=== PATIENT | female | born 1995 | race Caucasian/White ===

== ENCOUNTER 2019-05-10 18:07 | Emergency (ER) | payer OTHER, SELFPAY ==
[2019-05-10 18:11] VITALS: BP 124/72; PULSE 92; RESP 20; TEMP 36.6; O2SAT 100
--- NOTE | 2019-05-10 18:33 | ED.GENADULT ---
HPI - General Adult General Chief complaint: Upper Respiratory Infection Stated complaint: DRAINAGE/EARACHE/SORE THROAT Time Seen by Provider: 05/10/19 18:33 Source: patient Mode of arrival: ambulatory Limitations: no limitations History of Present Illness HPI narrative: 23-year-old female patient presents to the [facility] with complaints of sinus congestion symptoms for the past week. Patient states she was seen here about a month ago was treated for a sinus infection. Patient states that she did complete the antibiotics and was feeling good for about 2 weeks. Patient states some of her symptoms are starting to come back including nasal congestion, sore throat, a cough especially in the morning when she wakes up. Denies any fevers, ear pain, chest pain, shortness of breath. Patient states she has been trying to take [id number] Sudafed for her symptoms. Patient states that she did get a flu shot this year. Patient denies any smoking. Related Data Home Medications Medication Instructions Recorded Confirmed fluoxetine 40 mg PO DAILY 02/25/19 05/10/19 methotrexate sodium 2.5 mg PO WEEKLY 02/25/19 05/10/19 pseudoephedrine HCl [Sudafed] 30 mg PO Q4-6H PRN 04/04/19 05/10/19 Allergies Allergy/AdvReac Type Severity Reaction Status Date / Time hydroxychloroquine Allergy Severe hives Verified 05/10/19 18:21 [From Plaquenil] benzoyl peroxide Allergy Unknown eyes get Verified 05/10/19 18:21 puffy and itchy face Review of Systems Review of Systems: Narrative: CONSTITUTIONAL: Denies fever, chills, or sweats. EYES: Denies visual changes, redness, or discharge. ENT: Positive rhinorrhea, congestion, sore throat, denies otalgia. CARDIOVASCULAR: Denies chest pain, palpitations, or edema. RESPIRATORY: Positive cough, denies dyspnea. GASTROINTESTINAL: Denies abdominal pain, nausea, vomiting, or diarrhea. GENITOURINARY: Denies dysuria or hematuria. SKIN: Denies rash or itching. MUSCULOSKELETAL: Denies back pain, joint pain, or myalgia. NEUROLOGIC: Denies headache, numbness, or weakness. PSYCHIATRIC: Denies anxiety or depression. [facility] Past Medical History Medical History Anemia Arthritis Lupus Surgical History Surgical History History of tonsillectomy and adenoidectomy Family History Family History Grandparent Family history of thyroid disease Family history of osteoporosis Family history of psoriasis Family history of rheumatoid arthritis Family history of kidney disease Family history of type 2 diabetes mellitus Father Family history of osteoarthritis Family history of type 2 diabetes mellitus Diabetes mellitus Depression Mother Family history of osteoarthritis Depression Family history of arthritis Social History Social History Smoking status: Never smoker Second hand tobacco smoke exposure: No Alcohol intake: never Comments At the time of my signature I agree with nursing past medical history, surgical, social, and family history. There is no relevant family history pertinent to the presenting complaint. Exam Narrative: Exam Narrative: GENERAL: Well-appearing, well-nourished, and in no acute distress. HEAD: Normocephalic, atraumatic. No tenderness noted to frontal maxillary sinuses on palpation. EYES: PERRLA and EOMI. ENT: Nares with erythema and edema noted bilaterally, no rhinorrhea or epistaxis. Mucous membranes moist. Posterior pharynx with some postnasal drip. Bilateral TMs are clear no erythema or foreign bodies in the canal. NECK: Supple. No lymphadenopathy CHEST: Clear to auscultation. No respiratory distress. HEART: Regular rate and rhythm. No murmur heard. Normal peripheral pulses. ABDOMEN: Soft, nontender, nondistended, normal active bowel sounds.
== END 2019-05-10 18:44 | disposition home or self-care (01) ==
PROVIDERS: Emergency Provider Nurse Practitioner Family; PCP Family Medicine
DX: J06.9 Acute upper respiratory infection, unspecified (principal); J00 Acute nasopharyngitis [common cold]; J01.90 Acute sinusitis, unspecified; R05 Cough; M32.9 Systemic lupus erythematosus, unspecified; M19.90 Unspecified osteoarthritis, unspecified site; E28.2 Polycystic ovarian syndrome
CPT/HCPCS: 87081; 87880; 99213; G0463

== ENCOUNTER 2019-05-25 16:55 | Emergency (ER) | payer OTHER, SELFPAY ==
[2019-05-25 16:57] VITALS: BP 124/85; PULSE 138; RESP 20; TEMP 38.9; O2SAT 98
--- NOTE | 2019-05-25 17:19 | ED.GENADULT ---
HPI - General Adult General Chief complaint: Upper Respiratory Infection Stated complaint: Cough, Runny Nose, Headaches, Congestion Time Seen by Provider: 05/25/19 17:19 Source: patient Mode of arrival: ambulatory Limitations: no limitations History of Present Illness HPI narrative: 23-year-old female patient presents to the [facility] with complaints of flulike symptoms that started yesterday. Patient states she has had severe body aches, fevers, cough, nasal congestion and runny nose. Patient states that she did get a flu shot this year. 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 Patient states that her symptoms started yesterday. Patient states she has been taking Tylenol and ibuprofen for symptoms so far. Denies any chest pain or shortness of breath. Denies any or breast-feeding. Related Data Home Medications Medication Instructions Recorded Confirmed fluoxetine 40 mg PO DAILY 02/25/19 05/10/19 Allergies Allergy/AdvReac Type Severity Reaction Status Date / Time hydroxychloroquine Allergy Severe hives Verified 05/10/19 18:21 [From Plaquenil] benzoyl peroxide Allergy Unknown eyes get Verified 05/10/19 18:21 puffy and itchy face Review of Systems Review of Systems: Narrative: CONSTITUTIONAL: Positive fever, body aches, chills, and sweats. EYES: Denies visual changes, redness, or discharge. ENT: Positive rhinorrhea, congestion, denies sore throat, or otalgia. CARDIOVASCULAR: Denies chest pain, palpitations, or edema. RESPIRATORY: Positive cough, denies dyspnea. GASTROINTESTINAL: Denies abdominal pain, nausea, vomiting, or diarrhea. GENITOURINARY: Denies dysuria or hematuria. SKIN: Denies rash or itching. MUSCULOSKELETAL: Denies back pain, joint pain, or myalgia. NEUROLOGIC: Denies headache, numbness, or weakness. PSYCHIATRIC: Denies anxiety or depression. PMFSH Social History Social History Smoking status: Never smoker Second hand tobacco smoke exposure: No Alcohol intake: never Comments At the time of my signature I agree with nursing past medical history, surgical, social, and family history. There is no relevant family history pertinent to the presenting complaint. Exam Narrative: Exam Narrative: GENERAL: ill-appearing, well-nourished, and in no acute distress. HEAD: Normocephalic, atraumatic. Tenderness noted to frontal maxillary sinuses on palpation. EYES: PERRLA and EOMI. ENT: Nares clear, no rhinorrhea or epistaxis. Mucous membranes moist. Posterior pharynx with no erythema, tonsil enlargement, exudates or lesions present. Bilateral TMs are clear no erythema or foreign bodies in the canal. NECK: Supple. No lymphadenopathy CHEST: Clear to auscultation. No respiratory distress. HEART: Regular rate and rhythm. No murmur heard. Normal peripheral pulses. ABDOMEN: Soft, nontender, nondistended, normal active bowel sounds. EXTREMITIES: Normal range of motion. No edema. SKIN: Warm, dry, no rash. NEURO: No focal deficits. Alert and oriented x3. Course Vital Signs Vital signs: Vital Signs Temperature 38.9 C H 05/25/19 16:57 Pulse Rate 138 H 05/25/19 16:57 Respiratory Rate 20 05/25/19 16:57 Blood Pressure 124/85 05/25/19 16:57 Pulse Oximetry 98 05/25/19 16:57 Temperature 38.9 C H 05/25/19 16:57 Pulse Rate 138 H 05/25/19 16:57 Respiratory Rate 20 05/25/19 16:57 Blood Pressure 124/85 05/25/19 16:57 Pulse Oximetry 98 05/25/19 16:57 Vital signs reviewed The patient has been informed that they may have pre-hypertension or Hypertension based on a BP reading in the department. I recommend that the patient call the primary care provider listed on their discharge instructions or a physician of their choice this week to arrange follow up for further evaluation of possible pre-hypertension or Hypertension Medical Decision Making Differential Diagn
== END 2019-05-25 17:32 | disposition home or self-care (01) ==
PROVIDERS: Emergency Provider Nurse Practitioner Family; PCP Family Medicine
DX: J10.1 Influenza due to other identified influenza virus with other respiratory manifestations (principal); M32.9 Systemic lupus erythematosus, unspecified; E28.2 Polycystic ovarian syndrome
CPT/HCPCS: 87804; 99213; G0463

== ENCOUNTER 2020-02-18 11:11 | Outpatient (CLI) | payer OTHER, SELFPAY ==
--- NOTE | ~2020-02-18 | MR_ITS ---
EXAMINATION: MR cervical spine wo con DATE: 02/18/2020 12:00 INDICATION: Chronic neck and bilateral shoulder pain TECHNIQUE: Magnetic resonance imaging (MRI) of the cervical spine was performed without intravenous c ontrast. Sequences included sagittal T2-weighted FSE, sagittal T2-weighted FS FSE, sagittal T1-weight ed FSE, axial MERGE and axial T2-weighted FSE. COMPARISON: None FINDINGS: Bone alignment is normal. Vertebral body heights are normal. Bone marrow signal intensity is normal . Annular fissures at C4-C5, C5-C6 and C6-C7 with mild disc height loss at C4-C5 and C5-C6. Cord sign al intensity is normal. Mild prominence of the adenoids. Cervical soft tissues are otherwise unremark able. The following disc levels are specifically discussed: C2-C3: The disc does not extend beyond the endplate margin. There is no uncovertebral joint osteoarth ritis. There is mild left and minimal right facet joint osteoarthritis. There is no neural foraminal stenosis. There is no central canal stenosis. C3-C4: Disc is mildly bulging. There is mild right and minimal left uncovertebral joint osteoarthriti s. There is minimal bilateral facet joint osteoarthritis. There is mild right neural foraminal stenos is. There is mild central canal stenosis. C4-C5: Disc is bulging with annular fissure and small disc extrusion with disc material extending a f ew millimeters caudal to the level of the superior endplate of C5. There is no uncovertebral joint os teoarthritis. There is mild left and minimal right facet joint osteoarthritis. There is minimal left neural foraminal stenosis. There is mild central canal stenosis with slight indentation of the centra l ventral surface of the cord.. C5-C6: Disc is bulging with superimposed annular fissure and central disc extrusion with disc materia l extending a few millimeter caudal to the level of the superior endplate of C6. There is no uncovert ebral joint osteoarthritis. There is mild right and minimal left facet joint osteoarthritis. There is minimal bilateral neural foraminal stenosis. There is mild central canal stenosis with indentation o f the ventral surface of the cord. C6-C7: Disc is mildly bulging with small central disc extrusion with disc material extending a couple millimeters caudal to the level of the superior endplate of C7. There is no uncovertebral joint oste oarthritis. There is minimal bilateral facet joint osteoarthritis. There is no neural foraminal steno sis. There is mild central canal stenosis. C7-T1: The disc does not extend beyond the endplate margin. There is no uncovertebral joint osteoarth ritis. There is mild left facet joint osteoarthritis. There is no neural foraminal stenosis. There is no central canal stenosis. IMPRESSION: 1. Mild cervical spondylosis most notable for annular fissures and small central disc extrusions at C 4-C5 through C6-C7. Reviewed, dictated and finalized at location . KEEPING SUPERVISOR IMPRESSION: 1. Mild cervical spondylosis most notable for annular fissures and small centra l disc extrusions at C4-C5 through C6-C7.
--- NOTE | ~2020-02-18 | MR_ITS ---
EXAMINATION: MRI SACRUM W/O CONTRAST DATE: 02/18/2020 12:30 INDICATION: TECHNIQUE: Magnetic resonance imaging (MRI) of the sacrum and coccyx was performed as suggested on th e left linear without intravenous contrast. Sequences included sagittal PD-weighted FSE; oblique axi al T1-weighted FSE and T2-weighted FS FSE; oblique coronal T2-weighted FSE, T1-weighted FSE and T2-we ighted FS FSE.] COMPARISON: None. FINDINGS: Bone alignment is normal. Normal marrow signal throughout with no reactive edema, fracture or patholo gic marrow replacing process. Bilateral sacral iliac joint spaces appear normal with expected small a mount of fluid signal along the joint line. No evident fluid or synovitis at the recess of the joint space, erosions or abnormal subchondral edema or sclerosis to suggest inflammatory sacroiliitis. The visualized lower lumbar discs appear normal. Mild facet osteoarthritis on the left at L5-S1. Central canal and neural foramina at L4-L5 and L5-S1 are normal. Bilateral hip joints also appear normal with no joint effusion. Circular low signal intensity likely contraceptive ring in the vaginal vault. The visualized organs in the visualized pelvis are otherwise unremarkable. Trace amount of likely physio logic free fluid in the right side of the cul-de-sac.No pathologically enlarged lymphadenopathy in th e visualized pelvis and inferior abdomen. IMPRESSION: 1. Normal bilateral sacroiliac joints. No findings to suggest inflammatory sacroiliitis. Reviewed, dictated and finalized at [facility]. NILE COURT JUDGE IMPRESSION: 1. Normal bilateral sacroiliac joints. No findings to suggest inflammatory sacr oiliitis.
== END 2020-02-18 11:12 ==
PROVIDERS: Visit Provider Nurse Practitioner Family
DX: M32.9 Systemic lupus erythematosus, unspecified (principal); M47.892 Other spondylosis, cervical region; M50.20 Other cervical disc displacement, unspecified cervical region
CPT/HCPCS: 72141; 72197

== ENCOUNTER 2020-03-02 12:19 | Emergency (ER) | payer OTHER, SELFPAY ==
--- NOTE | ~2020-03-02 | CT_ITS ---
EXAMINATION: CT brain wo con DATE: 03/02/2020 14:39 INDICATION: Headache. TECHNIQUE: Computed tomography (CT) of the head was performed without intravenous contrast. The mA wa s adjusted according to patient size. Iterative reconstruction technique was employed. The dose-lengt h product was 605.33 mGy-cm. COMPARISON: None FINDINGS: There is no intracranial hemorrhage, acute infarction, or abnormal intracranial mass lesion . The ventricles are normal in size. There is a mucus retention cyst in left maxillary sinus. The orb its are normal. The mastoid air cells are normal. IMPRESSION: 1. Normal brain. Reviewed, dictated and finalized at location A. OYMENT COACH IMPRESSION: 1. Normal brain.
[2020-03-02 12:27] VITALS: BP 139/87; PULSE 99; RESP 18; TEMP 36.1; O2SAT 100
--- NOTE | 2020-03-02 14:26 | ED.GENADULT ---
HPI - General Adult General Chief complaint: Headache Stated complaint: vega Time Seen by Provider: 03/02/20 13:07 Source: patient Mode of arrival: ambulatory Limitations: no limitations History of Present Illness HPI narrative: Patient is a 24-year-old female who presents with right-sided parietal headache described as a sharp stabbing intermittent pain for the last 2 weeks patient denies injury trauma recent illness notes that the pain has not responded to Tylenol or naproxen patient denies similar occurrence in the past on arrival patient is in the room in no distress. Patient denies any URI symptoms visual changes paresthesias or weakness patient has not been seen for this complaint presents with family Related Data Allergies Allergy/AdvReac Type Severity Reaction Status Date / Time hydroxychloroquine Allergy Severe hives Verified 01/06/20 08:38 [From Plaquenil] benzoyl peroxide Allergy Unknown eyes get Verified 01/06/20 08:38 puffy and itchy face Review of Systems Review of Systems: All systems reviewed & are unremarkable except as noted in HPI and below PMFSH Past Medical History Medical History Anemia Arthritis Cervical pain Chronic daily headache Depression Low back pain radiating to both legs Lupus Surgical History Surgical History History of tonsillectomy and adenoidectomy Family History Family History Grandparent Family history of thyroid disease Family history of osteoporosis Family history of psoriasis Family history of rheumatoid arthritis Family history of kidney disease Family history of type 2 diabetes mellitus Father Family history of osteoarthritis Family history of type 2 diabetes mellitus Diabetes mellitus Depression Mother Family history of osteoarthritis Depression Family history of arthritis Social History Social History Smoking status: Never smoker Second hand tobacco smoke exposure: No Alcohol intake: never Gender identity (if verbalized by the patient): Female Exam Narrative: Exam Narrative: GENERAL: Well-appearing, well-nourished, and in no acute distress. HEAD: Normocephalic, atraumatic. EYES: PERRLA and EOMI. ENT: Nares clear, no rhinorrhea or epistaxis. Mucous membranes moist. Oropharynx without tonsillar hypertrophy exudate or other lesions. NECK: Supple. No adenopathy or masses. CHEST: Clear to auscultation. No respiratory distress. No wheezes rales or rhonchi HEART: Regular rate and rhythm. No murmur heard. EXTREMITIES: Normal range of motion. No edema. SKIN: Warm, dry, no rash. NEURO: No focal deficits. Alert and oriented x3. Cranial nerves II through XII grossly intact. Normal speech. Motor and sensory intact and symmetrical in the extremities PSYCH: Normal mood and affect. Course Course Emergency Course: Patient in the room at this time in no distress aware of case findings treatment plan diagnosis patient will be following with primary care on Thursday for reevaluation and rechecking of her white count unsure as to the etiology of this at this time patient afebrile nontoxic-appearing no URI symptoms or other symptoms to attribute to the white count could be demarginalization patient advised if she does develop URI symptoms she should contact primary care or return to the emergency department patient with no focal neurologic deficits pain well controlled at this time with fluids and Toradol patient will be discharged home and will follow in clinic on Thursday Consultations Consultation #1: Discussed case with primary care who will follow the patient on Thursday for reevaluation Date: 03/02/20 Time: 16:21 Vital Signs Vital signs: Vital Signs Temperature 97.0 F L 03/02/20 12:27 Pulse Rate 99 03/02/20 12:2
[2020-03-02] MEDS: KETOROLAC 30 MG/ML VIAL (*BKC) IV PUSH (14:35)
[2020-03-02] MEDS: SODIUM CHLORIDE 0.9% IV 1,000 ML 999 ML IV CONT (14:35)
[2020-03-02 14:42] VITALS: BP 128/74; PULSE 67; RESP 12; O2SAT 99
[2020-03-02 14:42] LABS: Basophils Absolute Auto 0.1 K/mm3 (0.0-0.1); Basophils Percent Auto 0.3 % (0.2-1.2); Eosinophils Percent Auto 0.2 % (0-4.4); Hematocrit 41.9 % (37.0-47.0); Hemoglobin 13.4 g/dL (12.0-15.0); Immature Granulocyte Percent A 0.5 % (0-0.5); Lymphocytes Absolute Auto 2.56 K/mm3 (0.9-3.2); Lymphocytes Percent Auto 13.8 % (18.3-44.2); Mean Corpuscular Hemoglobin 23.9 pg (26-34); Mean Corpuscular Volume 74.8 fl (80-100); Mean Platelet Volume 9.8 fl (7.4-10.4); Monocytes Absolute Auto 0.6 K/mm3 (0.1-0.6); Monocytes Percent Auto 3.1 % (2.6-8.5); Neutrophils Absolute Auto 15.2 K/mm3 (1.3-6.7); Neutrophils Percent Auto 82.1 % (45.5-73.1); Platelet Count Result 369 k/mm3 (150-375); Red Cell Distribution Width 15.6 % (11.5-14.5); White Blood Count 18.6 K/mm3 (4.5-10.0)
[2020-03-02 14:54] LABS: Anion Gap 7 mmol/L (8-16); Blood Urea Nitrogen 11 mg/dL (7-17); Calcium 9.8 mg/dL (8.4-10.2); Carbon Dioxide 25 mmol/L (22-30); Chloride 106 mmol/L (98-107); Estimated CRCL calculation 140 ml/min; Estimated Glomerular Filt Rate > 60; Glucose 88 mg/dL (65-105); Potassium 4.4 mmol/L (3.4-5.0); Sodium 138 mmol/L (137-145)
[2020-03-02 14:58] LABS: CRP 3.2 mg/dL (<1.0)
[2020-03-02 15:06] LABS: Erythrocyte Sedimentation Rate 12 mm/hr (0-20)
[2020-03-02 15:43] VITALS: BP 123/70; PULSE 70; RESP 12; O2SAT 99
[2020-03-02 15:43] LABS: Add Urine Microscopic? NO; Appearance Urine Clear (Clear); Bilirubin Urine Negative (Negative); Blood Urine Negative (Negative); Color Urine Yellow (Yellow); Glucose Urine UA Negative (Negative); Ketones Urine Negative (Negative); Leukocyte Esterase Ur Negative LEU/UL (Negative); Nitrate Urine Negative (Negative); Protein Urine Negative (Negative); Specific Grav Ur 1.019 (1.001-1.035); Urobilinogen Urine Negative mg/dL (<2.0)
[2020-03-02 16:35] VITALS: BP 120/65; PULSE 68; RESP 14; O2SAT 99
== END 2020-03-02 16:40 | disposition home or self-care (01) ==
PROVIDERS: Emergency Medicine Emergency Medical Services; Emergency Provider Emergency Medicine; PCP Family Medicine
DX: R51.9 Headache, unspecified (principal); D72.829 Elevated white blood cell count, unspecified; Z86.2 Personal history of diseases of the blood and blood-forming organs and certain disorders involving the immune mechanism; M19.90 Unspecified osteoarthritis, unspecified site
CPT/HCPCS: 36415; 70450; 80048; 81003; 81025; 85025; 85652; 86140; 96361; 96374; 99284; J1885; J7030

== ENCOUNTER 2021-03-10 12:52 | Emergency (ER) | payer OTHER, SELFPAY ==
--- NOTE | ~2021-03-10 | XR_ITS ---
EXAMINATION: XR foot RT min 3V EXAM DATE: 03/10/2021 14:33 INDICATION: Anterior right midfoot pain, with weightbearing. TECHNIQUE: Right foot dorsoplantar, lateral and oblique projections obtained and reviewed. There is no prior study for comparison. FINDINGS: Right metatarsal bones unremarkable. No periosteal reaction or band of sclerosis to sugges t subacute stress fracture. There are no acute fractures or dislocations identified. There is no s ubcutaneous gas. The soft tissue is unremarkable. There are no radiopaque foreign bodies. IMPRESSION: No acute osseous findings. Reviewed, dictated and finalized at location A. ERY CHECKER IMPRESSION: No acute osseous findings.
[2021-03-10 13:03] VITALS: BP 150/90; PULSE 100; RESP 16; TEMP 36.4; O2SAT 99
[2021-03-10] MEDS: HYDROcodone/acetaminophen (*CRX) 5-325 MG TABLET 1 TAB PO (14:39)
--- NOTE | 2021-03-10 16:10 | ED.LOWEXIN ---
HPI - Extremity Injury (Lower) General Chief Complaint: Extremity Injury, Lower Stated Complaint: foot injury Time Seen by Provider: 03/10/21 14:18 History of Present Illness HPI Narrative: Patient is a 25-year-old female who presents ER with right foot pain. Ongoing for the last week. Improving with naproxen. No known trauma. She had some mild swelling that has since improved. No redness. No history of gout. She had not been drinking alcohol or eating any smoked meats. She had avoided chicken gizzards. Patient does have history of lupus and reports she occasionally gets inflammatory pain in her joints. This would be the first time it happened in her foot. Related Data Allergies Allergy/AdvReac Type Severity Reaction Status Date / Time hydroxychloroquine Allergy Severe hives Verified 03/05/20 15:18 [From Plaquenil] benzoyl peroxide Allergy Unknown eyes get Verified 03/05/20 15:18 puffy and itchy face Review of Systems Constitutional: Constitutional: Denies chills, Denies fever(s) and Denies weakness Musculoskeletal: Musculoskeletal: Denies back pain, Reports arthralgias, Reports joint swelling and Denies muscle cramps Neurologic: Denies focal weakness and Denies numbness PMFSH Past Medical History Medical History (Updated 03/10/21 @ 16:12 by Jewel Nicole MD) Anemia Arthritis Cervical pain Chronic daily headache Depression Low back pain radiating to both legs Lupus Surgical History Surgical History History of tonsillectomy and adenoidectomy Family History Family History Grandparent Family history of thyroid disease Family history of osteoporosis Family history of psoriasis Family history of rheumatoid arthritis Family history of kidney disease Family history of type 2 diabetes mellitus Father Family history of osteoarthritis Family history of type 2 diabetes mellitus Diabetes mellitus Depression Mother Family history of osteoarthritis Depression Family history of arthritis Social History Social History Smoking status: Never smoker Second hand tobacco smoke exposure: No Alcohol intake: never Gender identity (if verbalized by the patient): Female Exam Narrative: GENERAL: Well-appearing, well-nourished, and in no acute distress. HEAD: Normocephalic, atraumatic. HEART: Regular rate and rhythm. Normal peripheral pulses. EXTREMITIES: Normal range of motion. No edema. Mild tenderness midfoot on the right side over the dorsum of the foot not the plantar aspect. Normal sensation. SKIN: Warm, dry, no rash. Irritated skin left cheek c/w impetigo. NEURO: No focal deficits. Alert and oriented x3. PSYCH: Normal mood and affect. Course Course Emergency Course: Patient may have sprain of the joint, she could also have inflammatory arthritis or gout flare. There is no redness or warmth or swelling. Recommend she continue her anti-inflammatories at home. Will place in postop shoe since pain is increased when transitioning from flatfoot to the ball of her foot. Vital Signs Vital signs: Vital Signs Temperature 97.5 F L 03/10/21 13:03 Pulse Rate 100 03/10/21 13:03 Respiratory Rate 16 03/10/21 13:03 Blood Pressure 150/90 H 03/10/21 13:03 Pulse Oximetry 99 03/10/21 13:03 Temperature 97.5 F L 03/10/21 13:03 Pulse Rate 100 03/10/21 13:03 Respiratory Rate 16 03/10/21 13:03 Blood Pressure 150/90 H 03/10/21 13:03 Pulse Oximetry 99 03/10/21 13:03 MDM - Extremity Injury (Lower) Imaging Data Radiologist's impression: ITS Impressions Foot X-Ray 03/10/21 14:51 IMPRESSION: No acute osseous findings. Discharge Plan Discharge Clinical Impression: Foot sprain Patient Disposition: Home, Self-Care Condition: Stable Instructions: Foot Spra
== END 2021-03-10 16:41 | disposition home or self-care (01) ==
PROVIDERS: Emergency Provider Emergency Medicine; PCP Family Medicine
DX: S93.601A Unspecified sprain of right foot, initial encounter (principal); M19.90 Unspecified osteoarthritis, unspecified site; Z86.2 Personal history of diseases of the blood and blood-forming organs and certain disorders involving the immune mechanism; X58.XXXA Exposure to other specified factors, initial encounter
CPT/HCPCS: 73630; 99283; A9270

== ENCOUNTER 2022-09-29 11:08 | Outpatient (CLI) | payer BC, SELFPAY ==
[2022-09-29 19:18] LABS: Basophils Absolute Auto 0.1 K/mm3 (0.0-0.1); Basophils Percent Auto 0.5 % (0.2-1.2); Eosinophils Absolute Auto 0.2 K/mm3 (0-0.3); Eosinophils Percent Auto 1.4 % (0-4.4); Hematocrit 40.1 % (37.0-47.0); Hemoglobin 12.5 g/dL (12.0-15.0); Immature Granulocyte Absolute 0.07 K/mm3 (0.00-0.031); Immature Granulocyte Percent A 0.5 % (0-0.5); Lymphocytes Percent Auto 25.5 % (18.3-44.2); Mean Corpuscular HGB Conc 31.2 g/dl (32-36); Mean Corpuscular Hemoglobin 24.4 pg (26-34); Mean Corpuscular Volume 78.3 fl (80-100); Mean Platelet Volume 10.5 fl (7.4-10.4); Monocytes Absolute Auto 0.6 K/mm3 (0.1-0.6); Monocytes Percent Auto 4.6 % (2.6-8.5); Neutrophils Absolute Auto 8.7 K/mm3 (1.3-6.7); Neutrophils Percent Auto 67.5 % (45.5-73.1); Platelet Count Result 321 k/mm3 (150-375); Red Blood Count 5.12 M/mm3 (4.2-5.4); Red Cell Distribution Width 14.6 % (11.5-14.5); White Blood Count 12.9 K/mm3 (4.5-10.0)
[2022-09-29 19:55] LABS: Alanine Aminotransferase 35 U/L (6-35); Albumin Level 4.4 g/dL (3.5-5.1); Alkaline Phosphatase 82 U/L (38-126); Anion Gap 5 mmol/L (8-16); Aspartate Amino Transferase 32 U/L (14-36); Bilirubin,Total 0.4 mg/dL (0.2-1.3); Blood Urea Nitrogen 11 mg/dL (7-17); Calcium 9.3 mg/dL (8.4-10.2); Carbon Dioxide 29 mmol/L (22-30); Chloride 103 mmol/L (98-107); Cholesterol 197 mg/dL (0-200); Estimated Glomerular Filt Rate > 60; Glucose 81 mg/dL (65-110); HDL Direct 39 mg/dL; Potassium 4.1 mmol/L (3.4-5.0); Sodium 137 mmol/L (137-145); Triglycerides 218 mg/dL (<150); Vitamin D 25 Hydroxy 19.5 ng/mL
[2022-09-29 20:08] LABS: LDL Cholesterol Direct 103 mg/dL
[2022-09-29 21:12] LABS: Hemoglobin A1C 5.3 % (<5.7)
== END 2022-09-29 11:09 | disposition home or self-care (01) ==
LOC: ANHGOSHLAB 11:09
PROVIDERS: PCP Family Medicine; Visit Provider Nurse Practitioner Family
DX: Z00.00 Encounter for general adult medical examination without abnormal findings (principal); E53.8 Deficiency of other specified B group vitamins; Z13.220 Encounter for screening for lipoid disorders; Z13.29 Encounter for screening for other suspected endocrine disorder; Z13.1 Encounter for screening for diabetes mellitus; M32.9 Systemic lupus erythematosus, unspecified; Z13.21 Encounter for screening for nutritional disorder
CPT/HCPCS: 36415; 80053; 80061; 82306; 82607; 83036; 84443; 85025

== ENCOUNTER 2022-11-08 07:45 | Outpatient (CLI) | payer BC, SELFPAY ==
--- NOTE | 2022-11-08 08:14 | ECHO_ITS ---
Patient Info Name: Aure Winn Age: 26 years : 1995 Gender: Female Ht: 67 in Wt: 315 lbs BSA: 2.68 m2 HR: 83 bpm BP: 115 / 88 mmHg Heart Rhythm: Sinus Rhythm Technical Quality: Poor Exam Date: 11/08/2022 8:30 AM Exam Location: [facility] Patient Status: Outpatient Admit Date: 11/08/2022 Staff Ordering Physician: Samantha Guevara APRN Binder Layer: Zeinab Mazariegos RDCS Attending Provider: Samantha Guevara APRN Referring Physician: Paola RAGSDALE; Exam Type: CA echo dop color flow w con Study Info Indications - chest pain Complete two-dimensional, color flow and Doppler transthoracic echocardiogram is performed. Reason for Poor Study: poor echocardiographic windows Summary 1. Complete two-dimensional, color flow and Doppler transthoracic echocardiogram is performed. 2. Left ventricular systolic function is low normal, estimated at 50-55%. 3. Left ventricular chamber dimension is mildly enlarged. 4. There is mildly increased left ventricular wall thickness. 5. The left ventricular diastolic function is normal. 6. Left atrial chamber dimension is mildly enlarged. 7. There is mild tricuspid valve regurgitation. 8. There is mild pulmonic regurgitation. 9. There is small pericardial effusion. Left Ventricle Left ventricular systolic function is low normal, estimated at 50-55%. Left ventricular chamber dimension is mildly enlarged. There is mildly increased left ventricular wall thickness. The left ventricular diastolic function is normal. Right Ventricle Right ventricular chamber dimension is normal. Right ventricular systolic function is normal. Left Atria Left atrial chamber dimension is mildly enlarged. Right Atria Right atrial chamber dimension is normal. Atrial Septum Intact interatrial septum visualized by color flow imaging. Aortic Valve The aortic valve is probable trileaflet. There is no aortic valve stenosis. There is trace aortic valve regurgitation. Pulmonic Valve The pulmonic valve is normal. There is no pulmonic valve stenosis. There is mild pulmonic regurgitation. Mitral Valve The mitral valve has thickened leaflets. There is no mitral valve stenosis. There is trace mitral valve regurgitation. Tricuspid Valve The tricuspid valve leaflets are normal. There is no significant tricuspid valve stenosis. There is mild tricuspid valve regurgitation. No pulmonary hypertension, estimated pulmonary arterial systolic pressure is 16 mmHg. Pericardium/Pleural The pericardium appears normal. There is small pericardial effusion. Inferior Vena Cava Normal inferior vena cava with >50% collapse upon inspiration consistent with normal right atrial pressure, 10 mmHg. Aorta The aortic root size at the sinus of Valsalva is normal. Left Ventricular Outflow Tract Name Value Normal LVOT 2D LVOT Diameter 1.84 cm LVOT Doppler LVOT Peak Gradient 4 mmHg LVOT Mean Gradient 3 mmHg LVOT VTI 21.99 cm LVOT VTI/AV VTI Ratio 0.77 LVOT Stroke Volume 58.48 ml LVOT CO 4.42 l/min
[2022-11-08] MEDS: PERFLUTREN LIPID MICROSPHERES 1.5 ML VIAL DILUTED TO 10 ML TOTAL VOLUME IV PUSH (08:30)
== END 2022-11-08 07:46 | disposition home or self-care (01) ==
PROVIDERS: PCP Family Medicine; Visit Provider Nurse Practitioner Family
DX: R07.9 Chest pain, unspecified (principal); R93.1 Abnormal findings on diagnostic imaging of heart and coronary circulation
CPT/HCPCS: C8929; Q9957

== ENCOUNTER 2022-12-05 10:20 | Outpatient (RCR) | payer BC, SELFPAY ==
--- NOTE | 2022-12-05 11:41 | OTOPEVAL1 ---
Assessment and note entered by Skyler Roman, LYNSEYR/Chavo, CHT Evaluation Information Assessment Status Evaluation Diagnosis Bilateral carpal tunnel syndrome Subjective Information Patient reports experiencing symptoms for years , but has noticed increased symptoms, particularly pain, over the last 6 months that began to affect her sleep and ability to hold objects, like doing the dishes, for example. She is right handed and a student. She reports intermittent paresthesias. Reported Pain Level Pain Score 2: Self Report Additional Pain Score Comments Reports a constant ache in bilateral wrists. Has been feeling better since steroid injections 11/12. States the pain gets up to 10/10 at worst and that this commonly happens at night and that the pain wakes her up in the middle of the night. Assessment OT Clinical Summary Patient referred to outpatient OT with bilateral carpal tunnel syndrome. She presents with preserved sensation and strength bilaterally. Biggest barrier to functioning is pain. Today bilateral wrist cock up splints were fabricated and issued. She was also educated on nerve glides as well as tendon gliding HEP. Continued skilled OT indicated for HEP progression, manual therapy, and modalities to facilitate optimal return to hand functioning and reduced nerve compression. Plan of Care Interventions Therapeutic Exercise,Manual Therapy,Therapeutic Activities,Hot Pack/Cold Pack,Check Out for Orthotic/Pr,Ultrasound,Paraffin OT Services Indicated Yes Treatment Frequency and 1x/week for 6 weeks Duration These treatments will address the objective and functional deficits as defined above. The patient will be advanced safely and appropriately in order for the patient to progress towards his/her prior level of function. Additional exercises will be introduced and as well as a comprehensive home exercise program upon discharge, if needed, ?to ensure carryover of functional gains achieved in the clinic. This treatment plan has been reviewed and agreement upon by the patient.
--- NOTE | 2022-12-05 11:43 | OPREHPOC ---
Outpatient Therapy Plan of Care This is a Multidisciplinary Plan of Care that may contain components documented by all disciplines (PT, OT, and ST.) OT Problem 1 OT Problem #1 Knowledge Deficit OT Goal 1 Goal Patient to be independent with instructed materials. Target Visit 7 OT Goal 2 Goal Patient to be compliant with splint wearing schedule. Target Visit 7 OT Problem 2 OT Problem #2 Pain OT Goal 1 Goal Patient to report reduced hand/wrist pain bilaterally to less than 4/10 at worst . Target Visit 7 OT Problem 3 OT Problem #3 Impaired Flexibility OT Goal 1 Goal Patient to be able to complete nerve glides without reports of tightness or pain. Target Visit 7
--- NOTE | 2022-12-19 09:27 | PCOTNOTE ---
Patient did not show up for scheduled appointment. 12/11/2022 and 12/19/2022. Patient was called and SAGAR left message at 9:27 am on 12/19/2022. Patient was notified of her next appointment and if she needed to reschedule to please call.
--- NOTE | 2022-12-26 12:57 | OTOPDC ---
Assessment and note entered by Skyler Roman, KARRI/Chavo, [facility] Discharge Notification 12/26/22 OT Clinical Summary Patient referred to outpatient hand therapy with dx of bilateral carpal tunnel syndrome. She attended the initial evaluation where bilateral wrist cock up orthoses were fabricated and she was issued tendon and nerve glides. She has not shown for any subsequent appointments. We are unable to get a hold of her. Discharging from skilled services due to poor attendance.
== END 2022-12-26 14:04 | disposition home or self-care (01) ==
LOC: ANHOT 10:20
PROVIDERS: PCP Family Medicine; Visit Provider Plastic Surgery
DX: G56.03 Carpal tunnel syndrome, bilateral upper limbs (principal)
CPT/HCPCS: 97110; 97165; 99199; L3906

== ENCOUNTER 2023-01-18 11:58 | Emergency (ER) | payer BC, SELFPAY ==
--- NOTE | ~2023-01-18 | XR_ITS ---
XR foot RT min 3V, XR ankle RT min 3V 01/18/2023 12:54 INDICATION: Right foot and ankle pain after fall PROCEDURE: 4 views right foot and ankle COMPARISON: No prior study FINDINGS: Fracture, dislocation or subluxation is not identified. The soft tissues appear within norm al limits. No foreign bodies are identified. IMPRESSION: 1: NO ACUTE BONE OR JOINT ABNORMALITY IDENTIFIED. Reviewed, dictated and finalized at location A. IMPRESSION: 1: NO ACUTE BONE OR JOINT ABNORMALITY IDENTIFIED.
[2023-01-18 12:47] VITALS: BP 127/84; PULSE 97; RESP 16; TEMP 36.6; O2SAT 98
--- NOTE | 2023-01-18 13:04 | ED.GENADULT ---
HPI - General Adult General Chief complaint: Extremity Injury, Lower Stated complaint: twisted right ankle Source: patient Mode of arrival: ambulatory Limitations: no limitations History of Present Illness HPI narrative: Patient presents for evaluation of right ankle pain. Symptom onset last night. She was walking down steps outside in attempted to walk over into the grass. In the process of doing so she turned her right ankle. She has had difficulty with weight-bearing since that time. She rates her pain currently as 7/10 in severity but it increases to 10/10 with weightbearing. No paresthesias. She is on meloxicam for SLE and took her medication this morning. She also tried taking tylenol. Denies loss of ROM. Related Data Allergies Allergy/AdvReac Type Severity Reaction Status Date / Time hydroxychloroquine Allergy Severe hives Verified 01/18/23 12:42 [From Plaquenil] benzoyl peroxide Allergy Unknown eyes get Verified 01/18/23 12:42 puffy and itchy face Review of Systems Review of Systems: CONSTITUTIONAL: Denies fever, chills, or sweats. EYES: Denies visual changes, redness, or discharge. ENT: Denies rhinorrhea, congestion, sore throat, or otalgia. CARDIOVASCULAR: Denies chest pain, palpitations, or edema. RESPIRATORY: Denies cough or dyspnea. GASTROINTESTINAL: Denies abdominal pain, nausea, vomiting, or diarrhea. GENITOURINARY: Denies dysuria or hematuria. SKIN: Denies rash or itching. MUSCULOSKELETAL: Reports right ankle pain. NEUROLOGIC: Denies headache, numbness, dizziness, or weakness. PSYCHIATRIC: Denies anxiety or depression. ON LICENSE OF [facility] Past Medical History Medical History (Updated 01/18/23 @ 13:31 by Carter Silvestre, NICHO, ) Abnormal echocardiogram Anemia Arthritis BMI 50.0-59.9, adult Cellulitis of leg, right Cervical pain Chronic daily headache Depression Elevated serum creatinine Elevated WBC count Jacquelyn's disease Impetigo Impetigo, unspecified Low back pain radiating to both legs Low calcium levels Lupus Panic attack PCOS (polycystic ovarian syndrome) Right ankle sprain Vitamin D deficiency, unspecified Surgical History Surgical History History of tonsillectomy and adenoidectomy Family History Family History Grandparent Family history of thyroid disease Family history of osteoporosis Family history of psoriasis Family history of rheumatoid arthritis Family history of kidney disease Family history of type 2 diabetes mellitus Father Family history of osteoarthritis Family history of type 2 diabetes mellitus Diabetes mellitus Depression Mother Family history of osteoarthritis Depression Family history of arthritis Social History Social History Social History: Caffeine- one can daily Smoking status: Never smoker Second hand tobacco smoke exposure: No Alcohol intake: current Alcohol use details: rarely Substance use: never Substance use type: does not use Lack of Transportation: No Lack of Food: Never True Current Housing: I Have Housing Concerned About Future Housing: No Difficulty Paying Gas/Electric Bills: No Difficulty Paying for Meds: No Currently Unemployed: No Education: High School Diploma/GED Difficulty w/ Childcare or Family Care: No Gender identity (if verbalized by the patient): Female Exam Narrative: GENERAL: Seated in wheelchair. Well-appearing, well-nourished, and in no acute distress. HEAD: Normocephalic, atraumatic. EYES: PERRLA and EOMI. ENT: Nares clear, no rhinorrhea or epistaxis. Mucous membranes moist. Oropharynx without tonsillar hypertrophy exudate or other lesions. Bilateral TMs pearly arellano nonbulging NECK: Supple. No adenopathy or masses. No carotid bruits or JVD CHEST: Clear to auscultati
== END 2023-01-18 13:39 | disposition home or self-care (01) ==
PROVIDERS: Emergency Provider Nurse Practitioner; PCP Family Medicine
DX: S93.401A Sprain of unspecified ligament of right ankle, initial encounter (principal); X50.0XXA Overexertion from strenuous movement or load, initial encounter
CPT/HCPCS: 73610; 73630; 99213; G0463

== ENCOUNTER 2023-01-23 12:39 | Outpatient (CLI) | payer BC, SELFPAY ==
[2023-01-23 18:38] LABS: Basophils Absolute Auto 0.1 K/mm3 (0.0-0.1); Basophils Percent Auto 0.7 % (0.2-1.2); Eosinophils Absolute Auto 0.1 K/mm3 (0-0.3); Eosinophils Percent Auto 1.2 % (0-4.4); Hematocrit 39.8 % (37.0-47.0); Hemoglobin 12.6 g/dL (12.0-15.0); Immature Granulocyte Absolute 0.04 K/mm3 (0.00-0.031); Immature Granulocyte Percent A 0.4 % (0-0.5); Lymphocytes Absolute Auto 3.71 K/mm3 (0.9-3.2); Lymphocytes Percent Auto 32.7 % (18.3-44.2); Mean Corpuscular HGB Conc 31.7 g/dl (32-36); Mean Corpuscular Hemoglobin 24.6 pg (26-34); Mean Corpuscular Volume 77.7 fl (80-100); Mean Platelet Volume 10.7 fl (7.4-10.4); Monocytes Absolute Auto 0.7 K/mm3 (0.1-0.6); Neutrophils Absolute Auto 6.7 K/mm3 (1.3-6.7); Platelet Count Result 382 k/mm3 (150-375); Red Blood Count 5.12 M/mm3 (4.2-5.4); Red Cell Distribution Width 15.1 % (11.5-14.5); White Blood Count 11.3 K/mm3 (4.5-10.0)
[2023-01-23 18:48] LABS: Alanine Aminotransferase 43 U/L (6-35); Albumin Level 4.3 g/dL (3.5-5.1); Alkaline Phosphatase 91 U/L (38-126); Anion Gap 10 mmol/L (8-16); Aspartate Amino Transferase 62 U/L (14-36); Bilirubin,Total 0.6 mg/dL (0.2-1.3); Blood Urea Nitrogen 10 mg/dL (7-17); Calcium 9.5 mg/dL (8.4-10.2); Carbon Dioxide 24 mmol/L (22-30); Chloride 103 mmol/L (98-107); Cholesterol 194 mg/dL (0-200); Estimated Glomerular Filt Rate > 60; Glucose 80 mg/dL (65-110); HDL Direct 32 mg/dL; Potassium 3.9 mmol/L (3.4-5.0); Sodium 137 mmol/L (137-145); Triglycerides 163 mg/dL (<150)
[2023-01-23 19:12] LABS: LDL Cholesterol Direct 107 mg/dL
[2023-01-26 13:52] LABS: NIL 0.03 IU/mL; Quantiferon TB Plus, 1T NEGATIVE (NEGATIVE); TB1-NIL <0.00 IU/mL; TB2-NIL <0.00 IU/mL
== END 2023-01-23 12:40 | disposition home or self-care (01) ==
LOC: ANHGOSHLAB 12:40
PROVIDERS: PCP Family Medicine; Visit Provider Nurse Practitioner Family
DX: Z00.00 Encounter for general adult medical examination without abnormal findings (principal); A15.9 Respiratory tuberculosis unspecified; I10 Essential (primary) hypertension; Z13.220 Encounter for screening for lipoid disorders; Z13.29 Encounter for screening for other suspected endocrine disorder
CPT/HCPCS: 36415; 80053; 80061; 84443; 85025; 86480

== ENCOUNTER 2023-05-19 10:38 | Outpatient (CLI) | payer BC, OTHER, SELFPAY ==
--- NOTE | 2023-05-19 11:30 | NEURO_ITS ---
Impression: # Complains of nocturnal paresthesia/numbness of hands. # Bilateral Carpal Tunnel Syndrome, right more than left. # No ulnar neuropathy. # Needle/EMG exam mildly abnormal. Nerve Conduction Studies Anti Sensory Summary Table Stim Site NR Peak (ms) P-T Amp (?V) Site1 Site2 Delta-P (ms) Dist (cm) Angel (m/s) Left Median Anti Sensory (2-3nd Digit) Wrist 3.8 88.3 Wrist 2-3nd Digit 3.8 14.0 37 Wrist 4.2 61.3 Wrist 2-3nd Digit 3.8 14.0 37 Right Median Anti Sensory (2-3nd Digit) Wrist 4.4 12.5 Wrist 2-3nd Digit 4.4 14.0 32 Wrist 4.7 44.1 Wrist 2-3nd Digit 4.4 14.0 32 Left Radial Anti Sensory (Base 1st Digit) Wrist 1.7 32.1 Wrist Base 1st Digit 1.7 0.0 Right Radial Anti Sensory (Base 1st Digit) Wrist 1.8 39.0 Wrist Base 1st Digit 1.8 0.0 Left Ulnar Anti Sensory (5th Digit) Wrist 2.3 60.0 Wrist 5th Digit 2.3 14.0 61 Right Ulnar Anti Sensory (5th Digit) Wrist 2.0 73.0 Wrist 5th Digit 2.0 14.0 70 Motor Summary Table Stim Site NR Onset (ms) O-P Amp (mV) Site1 Site2 Delta-0 (ms) Dist (cm) Angel (m/s) Left Median Motor (Abd Poll Brev) Wrist 4.5 0.3 Elbow Wrist 4.9 29.0 59 Elbow 9.4 1.2 Right Median Motor (Abd Poll Brev) Wrist 5.2 3.7 Elbow Wrist 4.5 26.0 58 Elbow 9.7 2.8 Left Ulnar Motor (Abd Dig Minimi) Wrist 2.5 7.5 A Elbow Wrist 5.0 31.0 62 A Elbow 7.5 6.6 Right Ulnar Motor (Abd Dig Minimi) Wrist 2.6 7.5 A Elbow Wrist 4.7 28.0 60 A Elbow 7.3 7.3 F Wave Studies NR F-Lat (ms) L-R F-Lat (ms) Left Median (Mrkrs) (Abd Poll Brev) 27.58 0.44 Right Median (Mrkrs) (Abd Poll Brev) 28.02 0.44 Left Ulnar (Mrkrs) (Abd Dig Min) 26.02 0.70 Right Ulnar (Mrkrs) (Abd Dig Min) 25.31 0.70 EMG Side Muscle Nerve Root Ins Act Fibs Amp Dur Recrt Comment Right 1stDorInt Ulnar C8-T1 Nml Nml Nml Nml Nml Right Ext Indicis Radial (Post Int) C7-8 Nml Nml Nml Nml Nml Right Ext Digitorum Radial (Post Int) C7-8 Nml Nml Nml Nml Nml Right BrachioRad Radial C5-6 Nml Nml Nml Nml Nml Right PronatorTeres Median C6-7 Nml Nml Nml Nml Nml Right Abd Poll Brev Median C8-T1 Nml Nml Nml >12ms Reduced Right ABD Dig Min Ulnar C8-T1 Nml Nml Nml Nml Nml Left 1stDorInt Ulnar C8-T1 Nml Nml Nml Nml Nml Left Ext Indicis Radial (Post Int) C7-8 Nml Nml Nml Nml Nml Left Ext Digitorum Radial (Post Int) C7-8 Nml Nml Nml Nml Nml Left BrachioRad Radial C5-6 Nml Nml Nml Nml Nml Left PronatorTeres Median C6-7 Nml Nml Nml Nml Nml Left Abd Poll Brev Median C8-T1 Nml Nml Nml >12ms Reduced Left ABD Dig Min Ulnar C8-T1 Nml Nml Nml Nml Nml Right Abd Poll Long Radial (Post Int) C7-8 Nml Nml Nml Nml Nml Left Abd Poll Long Radial (Post Int) C7-8 Nml Nml Nml Nml Nml MTDD
== END 2023-05-19 10:39 | disposition home or self-care (01) ==
PROVIDERS: PCP Family Medicine; Visit Provider Plastic Surgery
DX: G56.03 Carpal tunnel syndrome, bilateral upper limbs (principal)
CPT/HCPCS: 95886; 95911

== ENCOUNTER 2023-06-10 02:34 | Day surgery (SDC) | payer BC, OTHER, SELFPAY ==
[2023-06-03 11:10] VITALS: BMI 52.4
--- NOTE | 2023-06-03 11:16 | PC.NURSE ---
Report to the Outpatient Waiting Room, entrance under the green pavilion located off [facility], at time 0800 on date 06/10/23. Planned Procedure Time: 1000. Time changes happen often and if your time is changed the preop area will call you the afternoon before. - You and your visitor will be asked to self-screen and do not enter if you have any COVID symptoms. - A mask is optional within the hospital at this time. Patients may have clear liquids (water, carbonated beverages, clear teas, apple juice) until 8 hours prior to surgery with a maximum of 20 ounces. - No food from midnight until time of surgery Take the following medications with a SIP of water the morning of surgery: ESCITALOPRAM, LEVOTHYROXINE DO NOT STOP ANY OF YOUR OTHER PRESCRIPTION MEDICATIONS PRIOR TO SURGERY ?EXCEPT THE FOLLOWING Medications to discontinue per physician: VITAMINS Date to take last dose: 06/06/[address] CONTI REGARDING MELOXICAM Please no make-up, nail korean, hairspray, perfume, deodorant, or body powder the day of surgery. No jewelry (including any body piercings) or valuables the day of surgery, leave them at home. Please take a shower or bath the night before, or the morning of, surgery with an antibacterial soap. Wear comfortable, loose fitting clothing. - Jewelry must be removed prior to entering the operating room. Rings and piercings that are not removed may be cut off. - The hospital will not accept responsibility for valuables. - Please leave all valuables, including medications, at home the day of surgery. If you are going home after surgery, a licensed grain combine driver must drive you home. - NO public transportation without another adult if you receive anesthesia. - We recommend that an adult stay with you for 24 hours following discharge. - We also recommend that you do not drive, make important decision, drink alcoholic beverages, or take any drugs that were not prescribed by your health care provider for at least 24 hours after your discharge time. Follow any additional instructions given to you from your surgeon. If you or anyone in your household have experienced Covid symptoms in the past week, please notify your surgeon or the nurse liaison at the phone number below for possible testing. Telephone instructions given to PT - JIMMY VILLARREAL and asked if any additional questions and then verbalized understanding. Patient advised to call surgeon office or pre surgery nurse liaison [phone] if any additional questions.
--- NOTE | 2023-06-10 07:23 | PM.HPGS ---
History of Present Illness History of Present Illness Chief complaint: carpal tunnel of right wrist Narrative: Patient seen and examined in pre-operative holding area. No interval change in medical history or symptoms. Patient recalls previous discussion of benefits and alternatives to procedure. Continues to desire to proceed with right endoscopic possible open carpal tunnel release. Reviewed procedure, post-op expectations and risks including but not limited to bleeding, infection, injury to tendon/nerve/vessel, decreased hand function, stiffness, RSD, no change or worsening of symptoms. I discussed the possible use of assistants and their participation in the case. Patient stated understanding and signed the consent form wishing to proceed. Review of Systems Review of Systems: All systems reviewed & are unremarkable except as noted in HPI and below PMFSH Past Medical History Medical History (Updated 01/19/23 @ 00:01 by Andrea Mckeon) Abnormal echocardiogram Anemia Arthritis BMI 50.0-59.9, adult Cellulitis of leg, right Cervical pain Chronic daily headache Depression Elevated serum creatinine Elevated WBC count Jacquelyn's disease Impetigo Impetigo, unspecified Low back pain radiating to both legs Low calcium levels Lupus Panic attack PCOS (polycystic ovarian syndrome) Right ankle sprain Vitamin D deficiency, unspecified Surgical History Surgical History History of tonsillectomy and adenoidectomy Family History Family History Grandparent Family history of thyroid disease Family history of osteoporosis Family history of psoriasis Family history of rheumatoid arthritis Family history of kidney disease Family history of type 2 diabetes mellitus Father Family history of osteoarthritis Family history of type 2 diabetes mellitus Diabetes mellitus Depression Mother Family history of osteoarthritis Depression Family history of arthritis Social History Social History Social History: Caffeine- one can daily Smoking status: Never smoker Second hand tobacco smoke exposure: No Alcohol intake: never Alcohol use details: rarely Substance use: never Substance use type: does not use Lack of Transportation: No Lack of Food: Never True Current Housing: I Have Housing Concerned About Future Housing: No Difficulty Paying Gas/Electric Bills: No Difficulty Paying for Meds: No Currently Unemployed: No Education: High School Diploma/GED Difficulty w/ Childcare or Family Care: No Living arrangements: with family Gender identity (if verbalized by the patient): Female Spiritual care concerns: No Meds Home Medications and Allergies Home Medications Medication Instructions Recorded Confirmed Type cholecalciferol (vitamin D3) 1,250 1,250 mcg PO WEEKLY #20 tabs 11/17/22 06/10/23 Rx mcg (50,000 unit) tablet clonazepam 0.5 mg tablet 0.25 mg PO QHS PRN panic attack(s) 11/17/22 06/10/23 Rx #14 tabs meloxicam 15 mg tablet 15 mg PO DAILY #30 tabs 02/16/23 06/10/23 Rx escitalopram oxalate 20 mg tablet 20 mg PO DAILY #90 tabs 03/18/23 06/10/23 Rx levothyroxine 25 mcg tablet 25 mcg PO DAILY #30 tabs 03/25/23 06/10/23 Rx (Synthroid) tramadol 50 mg tablet 50 mg PO Q6H PRN pain #12 tabs 06/10/23 Rx Allergies Allergy/AdvReac Type Severity Reaction Status Date / Time hydroxychloroquine Allergy Severe hives Verified 06/10/23 08:06 [From Plaquenil] benzoyl peroxide Allergy Unknown eyes get Verified 06/10/23 08:06 puffy and itchy face Exam Narrative: unchanged Assessment and Plan Assessment and plan (1) Bilateral carpal tunnel syndrome: Code(s): G56.03 - Carpal tunnel syndrome, bilateral upper limbs Status: Acute Assessment and Plan: co
--- NOTE | 2023-06-10 07:24 | P.OP_ITS ---
Procedure Note - Detailed Date of Procedure 06/10/23 Pre-op Diagnosis carpal tunnel of right wrist Post-op Diagnosis Same Procedure Performed right ectr Surgeon Kallie Johnson MD Outpatient Pharmacy Manager Mirtha Davison PA-C Anesthesia MAC Description of Procedure INFORMED CONSENT: The patient was seen and examined and marked in the pre-op area.? The patient signed the consent form. PROCEDURE IN DETAIL:The patient taken back to OR on the stretcher in supine position. Time out performed with anesthesia, surgeon and staff agreeing on patient's name site and surgery to be performed SCDs were placed on the lower extremities and inflated. A tourniquet was placed on {right} upper extremity and antibiotics given IV After anesthesia administered sedation I injected {5}cc 1%lido with epi and 0.5% marcaine plain at the operative site The?{right upper extremity}?was prepped and draped in sterile fashion the??{right upper extremity} was? exsanguinated with Esmarch bandage and tourniquet inflated to 250mmHg I made a transverse incision in the {right} volar distal wrist crease through skin and dermis with 15 blade scalpel.? Littler scissors spread down to antebrachial fascia. A small incision was made in antebrachial fascia allowing access to Carpal tunnel. I proceeded with sequential dilation staying in line with the ring finger and hugging the hook of the hamate.? I then used the synovial elevator to free any adhesions from the underside of the transverse carpal ligament. Next I was able to insert the Microaire endoscopic carpal tunnel device with direct visualization of the transverse fibers on the monitor and proceeded with complete segmental retrograde release of the ligament in its entirety.? I irrigated with normal saline and closed with 4-0 monocryl for dermis and subcuticular closure. A dressing of Dermabond, 4x4, victor hugo, and a volar splint was applied for patient safety, security, and comfort and secured with an moisés bandage after the tourniquet was let down noting the hand was warm and well perfused. The patient was then awaken from anesthesia and transferred to the recovery room in stable condition.? Complications - none EBL- 0cc Disposition - home in stable conditions Mirtha Davison PA-C was essential for positioning, retraction, closure and dressing placement [facility] Billing Surgery - Charge Forward: Surgery Billing ([id number] for mirtha)
[2023-06-10 08:00] VITALS: BP 141/83; PULSE 81; TEMP 36.4; O2SAT 100
--- NOTE | 2023-06-10 08:34 | WPDANESEPPF ---
Anes - Initial Pre Proc Eval Procedure: Operation Date: 06/10/23 10:00 Proposed Procedures p Right Endoscopic Carpal Tunnel Release, Possible Open - Kallie Johnson MD Date/Time: 06/10/23 08:34 Surgeon: Kallie Johnson MD Pre Op Diagnosis: carpal tunnel of right wrist Patient Data Age: 27 Gender: F Height: 1.65 m Weight: 149.6 kg Last Vital Signs Temp 36.4 C L 06/10/23 08:00 Pulse 81 06/10/23 08:00 BP 141/83 H 06/10/23 08:00 Pulse Ox 100 06/10/23 08:00 Allergies Allergy/AdvReac Type Severity Reaction Status Date / Time hydroxychloroquine Allergy Severe hives Verified 06/10/23 08:06 [From Plaquenil] benzoyl peroxide Allergy Unknown eyes get Verified 06/10/23 08:06 puffy and itchy face Home Medications Medication Instructions Recorded Confirmed Type cholecalciferol (vitamin D3) 1,250 1,250 mcg PO WEEKLY #20 tabs 11/17/22 06/10/23 Rx mcg (50,000 unit) tablet clonazepam 0.5 mg tablet 0.25 mg PO QHS PRN panic attack(s) 11/17/22 06/10/23 Rx #14 tabs meloxicam 15 mg tablet 15 mg PO DAILY #30 tabs 02/16/23 06/10/23 Rx escitalopram oxalate 20 mg tablet 20 mg PO DAILY #90 tabs 03/18/23 06/10/23 Rx levothyroxine 25 mcg tablet 25 mcg PO DAILY #30 tabs 03/25/23 06/10/23 Rx (Synthroid) tramadol 50 mg tablet 50 mg PO Q6H PRN pain #12 tabs 06/10/23 Rx Patient hx anesthesia problems: none Family hx anesthesia problems: none Results Review: All pre-operative results and documents have been reviewed as part of the pre-operative evaluation. [facility] Past Medical History Medical History (Updated 01/19/23 @ 00:01 by Background Daemon) Abnormal echocardiogram Anemia Arthritis BMI 50.0-59.9, adult Cellulitis of leg, right Cervical pain Chronic daily headache Depression Elevated serum creatinine Elevated WBC count Jacquelyn's disease Impetigo Impetigo, unspecified Low back pain radiating to both legs Low calcium levels Lupus Panic attack PCOS (polycystic ovarian syndrome) Right ankle sprain Vitamin D deficiency, unspecified Surgical History Surgical History History of tonsillectomy and adenoidectomy Family History Family History Grandparent Family history of thyroid disease Family history of osteoporosis Family history of psoriasis Family history of rheumatoid arthritis Family history of kidney disease Family history of type 2 diabetes mellitus Father Family history of osteoarthritis Family history of type 2 diabetes mellitus Diabetes mellitus Depression Mother Family history of osteoarthritis Depression Family history of arthritis Social History Social History Social History: Caffeine- one can daily Smoking status: Never smoker Second hand tobacco smoke exposure: No Alcohol intake: never Alcohol use details: rarely Substance use: never Substance use type: does not use Lack of Transportation: No Lack of Food: Never True Current Housing: I Have Housing Concerned About Future Housing: No Difficulty Paying Gas/Electric Bills: No Difficulty Paying for Meds: No Currently Unemployed: No Education: High School Diploma/GED Difficulty w/ Childcare or Family Care: No Living arrangements: with family Gender identity (if verbalized by the patient): Female Spiritual care concerns: No Anes - Eval Final PreProcedure Day of Procedure 06/10/23 08:34 Patient weight: super morbidly obese Heart: regular rate and rhythm Lungs: clear to auscultation Airway: Mallampati scale class III Neurological: alert and oriented Last oral intake: >/= 8 hours ASA classification: III Emergent: no Anesthetic plan: proceed Anesthesia type and monitoring: general GIVS and LMA and standard monitoring Results Review: All pre-operative
[2023-06-10] MEDS: LACTATED RINGERS 1,000 ML 30 ML IV CONT (08:41)
[2023-06-10] MEDS: ceFAZolin 3 GM/D5W 100 ML 100 ML IVPB (09:27)
[2023-06-10] MEDS: KETOROLAC 30 MG/ML VIAL (*BKC) IV PUSH (09:34)
[2023-06-10] MEDS: LIDO 1%/EPINEPHRINE 1:100,000 20 ML VIAL 5 ML INFILTRATE (09:43)
[2023-06-10 09:52] VITALS: BP 123/64; PULSE 64; RESP 16; O2SAT 92
[2023-06-10 10:15] VITALS: BP 111/57; PULSE 58; RESP 16; O2SAT 97
[2023-06-10 10:25] VITALS: BP 105/58; PULSE 59; RESP 14
== END 2023-06-10 10:35 | disposition home or self-care (01) ==
PROVIDERS: PCP Family Medicine; Visit Provider Plastic Surgery
PROC: 01N54ZZ Release Median Nerve, Percutaneous Endoscopic Approach (ICD-10-PCS; CPT 29848; principal; 2023-06-10 10:00)
DX: G56.01 Carpal tunnel syndrome, right upper limb (principal); E06.3 Autoimmune thyroiditis; M32.9 Systemic lupus erythematosus, unspecified; F41.9 Anxiety disorder, unspecified; F32.A Depression, unspecified; E55.9 Vitamin D deficiency, unspecified
CPT/HCPCS: 29848; J0690; J1885; J2250; J2405; J2704; J3010; J7120

== ENCOUNTER 2023-09-16 01:02 | Day surgery (SDC) | payer BC, OTHER, SELFPAY ==
[2023-09-07 13:59] VITALS: BMI 48.0
--- NOTE | 2023-09-07 14:06 | PC.NURSE ---
Report to the Outpatient Waiting Room, entrance under the green pavilion located off [facility], at time _1000_ on date _[id number]_. Planned Procedure Time: _1200_. Time changes happen often and if your time is changed the preop area will call you the afternoon before. - You and your visitor will be asked to self-screen and do not enter if you have any COVID symptoms. - A mask is optional within the hospital at this time. Patients may have clear liquids (water, carbonated beverages, clear teas, apple juice) until 3 hours prior to surgery with a maximum of 20 ounces. - No food from midnight until time of surgery Take the following medications with a SIP of water the morning of surgery: __Levothyroxine, Escitalopram DO NOT STOP ANY OF YOUR OTHER PRESCRIPTION MEDICATIONS PRIOR TO SURGERY ?EXCEPT THE FOLLOWING Medications to discontinue per physician ____Vitamin D3 Date to take last ynic__[id number] Please no make-up, nail burundian, hairspray, perfume, deodorant, or body powder the day of surgery. No jewelry (including any body piercings) or valuables the day of surgery, leave them at home. Please take a shower or bath the night before, or the morning of, surgery with an antibacterial soap. Wear comfortable, loose fitting clothing. - Jewelry must be removed prior to entering the operating room. Rings and piercings that are not removed may be cut off. - The hospital will not accept responsibility for valuables. - Please leave all valuables, including medications, at home the day of surgery. If you are going home after surgery, a licensed city bus driver must drive you home. - NO public transportation without another adult if you receive anesthesia. - We recommend that an adult stay with you for 24 hours following discharge. - We also recommend that you do not drive, make important decision, drink alcoholic beverages, or take any drugs that were not prescribed by your health care provider for at least 24 hours after your discharge time. Follow any additional instructions given to you from your surgeon. If you or anyone in your household have experienced Covid symptoms in the past week, please notify your surgeon or the nurse liaison at the phone number below for possible testing. Telephone instructions given to _Aure_and asked if any additional questions and then verbalized understanding. Patient advised to call surgeon office or pre surgery nurse liaison [phone] if any additional questions.
--- NOTE | 2023-09-15 15:47 | WPDANESEPPF ---
Anes - Initial Pre Proc Eval Procedure: Operation Date: 09/16/23 12:00 Proposed Procedures p Hysteroscopy Dilation and Curettage - Andrew Reynoso MD Date/Time: 09/15/23 15:47 Surgeon: Andrew Reynoso MD Pre Op Diagnosis: abnormal uterine bleeding Patient Data Age: 27 Gender: F Height: 1.65 m Weight: 130.9 kg Allergies Allergy/AdvReac Type Severity Reaction Status Date / Time hydroxychloroquine Allergy Severe hives Verified 09/07/23 13:58 [From Plaquenil] benzoyl peroxide Allergy Unknown eyes get Verified 09/07/23 13:58 puffy and itchy face Home Medications Medication Instructions Recorded Confirmed Type cholecalciferol (vitamin D3) 1,250 1,250 mcg PO WEEKLY #20 tabs 11/17/22 09/07/23 Rx mcg (50,000 unit) tablet clonazepam 0.5 mg tablet 0.25 mg PO QHS PRN panic attack(s) 11/17/22 09/07/23 Rx #14 tabs levothyroxine 25 mcg tablet 25 mcg PO DAILY #90 tabs 07/13/23 09/07/23 Rx (Synthroid) escitalopram oxalate 20 mg tablet 20 mg PO DAILY #90 tabs 07/14/23 09/07/23 Rx Patient hx anesthesia problems: none Family hx anesthesia problems: none Results Review: All pre-operative results and documents have been reviewed as part of the pre-operative evaluation. [facility] Past Medical History Medical History (Updated 07/13/23 @ 15:09 by Samantha Guevara APRN) Abnormal echocardiogram Anemia Anxiety Arthritis BMI 50.0-59.9, adult Cellulitis of leg, right Cervical pain Chronic daily headache Depression Elevated serum creatinine Elevated WBC count Jacquelyn's disease Impetigo Impetigo, unspecified Low back pain radiating to both legs Low calcium levels Lupus Panic attack PCOS (polycystic ovarian syndrome) Right ankle sprain Vitamin D deficiency, unspecified Surgical History Surgical History History of tonsillectomy and adenoidectomy Family History Family History Grandparent Family history of thyroid disease Family history of osteoporosis Family history of psoriasis Family history of rheumatoid arthritis Family history of kidney disease Family history of type 2 diabetes mellitus Father Family history of osteoarthritis Family history of type 2 diabetes mellitus Diabetes mellitus Depression Mother Family history of osteoarthritis Depression Family history of arthritis Social History Social History Social History: Caffeine- one can daily Smoking status: Never smoker Second hand tobacco smoke exposure: No Alcohol intake: never Alcohol use details: rarely Substance use: never Substance use type: does not use Lack of Transportation: No Lack of Food: Never True Current Housing: I Have Housing Concerned About Future Housing: No Difficulty Paying Gas/Electric Bills: No Difficulty Paying for Meds: No Currently Unemployed: No Education: High School Diploma/GED Difficulty w/ Childcare or Family Care: No Living arrangements: with family Gender identity (if verbalized by the patient): Female Spiritual care concerns: No Anes - Eval Final PreProcedure Day of Procedure 09/15/23 15:47 Patient weight: morbidly obese Heart: regular rate and rhythm Lungs: clear to auscultation Airway: Mallampati scale class II Neurological: alert and oriented Last oral intake: >/= 8 hours ASA classification: III Emergent: no Anesthetic plan: proceed Anesthesia type and monitoring: general GIVS and standard monitoring Results Review: All pre-operative results and documents have been reviewed as part of the pre-operative evaluation. Informed Consent: The patient's anesthetic plan and its attendant risks and benefits were discussed with the patient/family/POA. Questions were solicited and answers provided to the satisfaction of the patient/family/POA.
[2023-09-16] MEDS: LACTATED RINGERS 1,000 ML 30 ML IV CONT (10:39)
[2023-09-16] MEDS: ACETAMINOPHEN 500 MG TABLET 1000 MG PO (11:19)
--- NOTE | 2023-09-16 13:01 | PM.OBTRLD ---
OB - Triage/Final Diagnosis Visit Information Comments/Additional reasons for admission: I have assessed the risk for this patient, Aure Winn, and determined that she would benefit from observation care.
--- NOTE | 2023-09-16 13:12 | WPDHPUPDATE1 ---
History and Physical Update Update Date/Time: 09/16/23 13:12 History and Physical has been reviewed, including an updated exam of the patient. There are NO changes in the patient's condition. Risks, benefits, and alternatives have been discussed and questions answered. Patient agrees to proceed with procedure.
--- NOTE | 2023-09-16 13:16 | W.PM.PROC2 ---
Procedure Note - Detailed Date of Procedure 09/16/23 Pre-op Diagnosis pelvic pain, ovarian cyst Post-op Diagnosis Same Procedure Performed laparoscopic right ovarian cystic Surgeon Andrew Reynoso MD Anesthesia General Indications Pelvic pain Findings 6 cm right ovarian cyst, normal uterus tubes and ovaries otherwise. Description of Procedure The patient was taken to the operating room. She was prepped and draped in the dorsal lithotomy position after induction general anesthesia. A 5 mm incision was made with a scalpel on the abdominal skin in the left upper quadrant of the abdomen. A 5 mm trocar was inserted into the intra-abdominal cavity under direct visualization the scope. In the same fashion a 5 mm left lower quadrant trocar was inserted and a 5 mm infraumbilical trocar was inserted. Laparoscopic ovarian cystectomy was performed on the right ovary using sharp and blunt dissection along with cautery. LigaSure cautery was used to transect along the base of the cyst. Cyst was taken out through the left lower quadrant trocar site. The cut surface was cauterized after the cyst capsule was peeled out. It was hemostatic after the cut surface was cauterized. The pelvis was irrigated. The pneumoperitoneum was reduced. The trocars were removed. Skin was closed with subcuticular 4 micro. The patient's incisions were covered with Dermabond. She was taken recovery room in stable condition. Sponge lap and needle counts were correct x2. Estimated Blood Loss 25 Pathology Yes Complications No immediate complications Condition Stable Disposition Same day
[2023-09-16] MEDS: LIDOCAINE HCL 1% LOCAL INJ 20 ML VIAL 10 ML INFILTRATE (13:43)
[2023-09-16] MEDS: KETOROLAC 15 MG/ML VIAL (*BKC) IV PUSH (13:46)
[2023-09-16 13:50] VITALS: BP 100/54; PULSE 63; RESP 12; O2SAT 98
--- NOTE | 2023-09-16 14:04 | W.PM.PROC2 ---
Procedure Note - Detailed Date of Procedure 09/16/23 Pre-op Diagnosis abnormal uterine bleeding Post-op Diagnosis Same Procedure Performed Hysteroscopy D&C Surgeon Andrew Reynoso MD Anesthesia MAC Indications abnormal uterine bleeding Findings thickened endometrium, otherwise normal endometrial cavity, cervix, and vagina Description of Procedure the patient was taken the operating room. She was prepped and draped in the dorsal lithotomy position after induction of mac anesthesia. A speculum was placed in the vagina. The cervix was grasped with a tenaculum. The cervix was dilated about 1 cm. The hysteroscope was inserted. The intrauterine cavity and endocervix were evaluated. Hysteroscope was withdrawn. A medium-size curette was used to curettage all the surfaces were within the endometrial cavity. the sample was collected on Telfa and sent to pathology. The hysteroscope was reinserted and the above findings were noted. Patient tolerated the procedure well. The speculum and tenaculum were removed. She was taken recovery room in stable condition. Sponge lap and needle counts were correct x2. Estimated Blood Loss 25 Drains No Packing No Pathology Yes Complications No immediate complications Condition Stable Disposition PACU
[2023-09-16 14:20] VITALS: BP 105/64; PULSE 58; RESP 16
[2023-09-16] MEDS: oxyCODONE HCL (*CRX) 5 MG TAB IR PO (14:41)
[2023-09-16 14:50] VITALS: BP 105/70; PULSE 58; RESP 16
[2023-09-16 15:20] VITALS: BP 100/61; PULSE 58; RESP 16
== END 2023-09-16 15:30 | disposition home or self-care (01) ==
PROVIDERS: PCP Family Medicine; Visit Provider Obstetrics & Gynecology
PROC: 0U5B8ZZ Destruction of Endometrium, Via Natural or Artificial Opening Endoscopic (ICD-10-PCS; CPT 58563; principal; 2023-09-16 12:00)
DX: N93.9 Abnormal uterine and vaginal bleeding, unspecified (principal); E06.3 Autoimmune thyroiditis; F41.9 Anxiety disorder, unspecified; F32.A Depression, unspecified; E55.9 Vitamin D deficiency, unspecified; E66.01 Morbid (severe) obesity due to excess calories; Z68.42 Body mass index [BMI] 45.0-49.9, adult
CPT/HCPCS: 58558; 88305; A9270; J1885; J2250; J2704; J3010; J7120

== ENCOUNTER 2024-07-08 08:51 | Outpatient (CLI) | payer OTHER, SELFPAY ==
--- OUTSIDE RECORDS SUMMARY | 2024-07-08 09:05 | XMS_ITS | Clinical Summary ---
Author Organization [facility] [address] [place] [address] [address] [address] [place] [address] Care Team Providers Care Database Management System Specialist Name Role Phone Karly Mohan NICHO Primary Care Provider [phone] Allergies Active Allergy Reactions Criticality Noted Date Comments Benzoyl Peroxide Anaphylaxis High 03/20/2020 Hydroxychloroquine Hives High 03/20/2020 Medications cyclobenzaprine (FLEXERIL) 10 mg tablet Take 10 mg by mouth 3 times daily as needed for Spasm. Active escitalopram oxalate (LEXAPRO) 20 mg tablet Take 20 mg by mouth daily. Active levothyroxine 25 mcg tablet Take 25 mcg by mouth daily in the morning. Active omeprazole (PriLOSEC) 20 mg Capsule, Delayed Release(E.C.) Take 20 mg by mouth daily. Active HYDROcodone-moisés taminophen 2.5-108 mg/5 mL SolutionIndicat ions:Post-op pain Take 15 mL by mouth every 6 hours as needed for Pain, Severe. Max Daily Amount: 60 mL 300 mL 07/07/2023 11:49 AM CDT 07/06/2023 Active ondansetron (ZOFRAN ODT) 4 mg Tablet, Rapid Dissolve Dissolve 1 tablet on top of tongue, then swallow with saliva every 6 hours as needed for Nausea. 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 Systemic lupus erythematosus 07/06/2023 Chronic low back pain 07/06/2023 General medical exam 07/06/2023 Generalized anxiety disorder 07/06/2023 Encounters Date Type Department Care Team Description 06/28/2024 External Device Data [facility] ABSTRACTION Provider, Abstract 06/28/2024 External Device Data [facility] ABSTRACTION Provider, Abstract 06/15/2024 External Device Data [facility] ABSTRACTION Provider, Abstract 06/04/2024 External Device Data [facility] ABSTRACTION Provider, Abstract 06/03/2024 External Device Data [facility] ABSTRACTION Provider, Abstract 05/31/2024 External Device Data [facility] ABSTRACTION Provider, Abstract 05/18/2024 External Device Data [facility] ABSTRACTION Provider, Abstract 05/18/2024 External Device Data [facility] ABSTRACTION Provider, Abstract 05/03/2024 External Device Data [facility] ABSTRACTION Provider, Abstract 04/27/2024 External Device Data [facility] ABSTRACTION Provider, Abstract 04/21/2024 External Device Data [facility] ABSTRACTION Provider, Abstract 04/12/2024 External Device Data [facility] ABSTRACTION Provider, Abstract from Last 3 Months Social History Tobacco Use Types Packs/Day Years Used Date Smoking Tobacco: Never Smokeless Tobacco: Never Tobacco Cessation:Counseling Given: No Alcohol Use Standard Drinks/Week Comments Never 0 (1 standard drink = 0.6 oz pur e alcohol) Feeling Safe Answer Date Recorded Are you in a relationship wi th someone who hurts you emotionally and/or physically? 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 Gender Identity Not on file Sexual Orientation Not on file Last Filed Vital Signs Vital Sign Reading Time Taken Comments Blood Pressure 124/86 07/08/2023 8:31 AM CDT Pulse 92 07/08/2023 8:31 AM CDT Temperature 36.4 C (97.5 F) 07/08/2023 8:31 AM CDT Respiratory Rate 18 07/08/2023 8:31 AM CDT Oxygen Saturation 97% 07/08/2023 8:31 AM CDT Inhaled Oxygen Concentration - - Weight 155.2 kg (342 lb 3.2 oz) 024 12:35 PM CDT Height 167.6 cm (5' 6 ) 07/06/2023 12:3 5 PM CDT Body Mass Index 55.23 07/06/2023 12:35 PM CDT Plan of Treatment Health Maintenance Due Date Last Done Comments DTAP/TDAP/TD VACCINES (1 - Tdap) 2013 HEPATITIS B VACCINES (1 of 3 - 19+ 3-dose series) 2013 CERVICAL CANCER SCREENING 11/30/2015 HPV/Cotest (21-29) 11/30/2015 PAP SMEAR 11/30/2015 PAP SMEAR 11/30/2015 INFLUENZA VACCINE (#1) 2023 Preventative Visit- Commercial 03/30/2024 HPV VACCINES Aged Out No longer eligi ble based on patient's age to complete this topic Medical Devices Implanted Type Area Tube Machine Operator Helper Device Identifier Shelf Expiration Date Model / Serial / Lot Seamguard Endogia 60 Blk [id number] - [id number] Implanted:Qt y: 1 on 07/06/2023 by Parminder Ortega MD at [facility] N/A: [employer]om[employer] [id number] 12/09/2025 12BSGTRI 60B / / [id number] Seamguard Endogia 60 Blk [id number] - [id number] Implanted:Qt y: 1 on 07/06/2023 by Parminder Ortega MD at [facility] N/A: [employer]om[employer] [id number] 12/09/2025 12BSGTRI 60B / / [id number] Seamguard Endogia 60 Prpl [id number] - [id number] Implanted:Qt y: 1 on 07/06/2023 by Parminder Ortega MD at [facility] N/A: [employer] [id number] 12/27/2025 12BSGTRI 60P / / [id number] Seamguard Endogia 60 Prpl [id number] - [id number] Implanted:Qt y: 1 on 07/06/2023 by Parminder Ortega MD at [facility] N/A: [employer] [id number] 12/27/2025 12BSGTRI 60P / / [id number] Insurance [facility] Member Subscriber Plan / Payer (Ef fective 2023-Present) Name:Jimmy Cm Relation to Subscriber:Self Name:Jimmy Cm Payer ID:Not on file Group ID:Not on file Type:[place] Address: [address] BLUE ACCESS/TRUE BLUE PPO RX [employer] RX DIGGS PLANS (INTERNAL) [facility] Internal Plans Advance Directives For more information, please contact: [phone] * Full Code (Latest Code Status on File) Date Activated Date Inactivated Comments 07/06/2023 8:23 AM 07/08/2023 1:09 PM * Full Code Date Activated Date Inactivated Comments 07/06/2023 7:16 AM 07/06/2023 8:23 AM Care Teams Database Management System Specialist Relationship Specialty Start Date End Date Karly Mohan FNP [address] [place] [address] PCP - General Nurse Practitioner Family 03/20/20
--- OUTSIDE RECORDS SUMMARY | 2024-07-08 09:05 | XMS_ITS | Clinical Summary ---
Author Organization [facility] Address [address], [facility] [address] [place] [address] Phone Care Team Providers Care Certified Prosthetist/Orthotist Name Role Phone Marcelino Lozano Primary Care Provider [phone] Allergies Active Allergy Reactions Criticality Noted Date Comments Benzoyl Peroxide Anaphylaxis,Other (see Comments) High 04/11/2018 Hydroxychloroquine Hives,Other (see Comments) High 0 04/11/2018 Medications meloxicam (MOBIC) 15 MG Tablet Take 1 Tablet by mouth daily. 2 Active levothyroxine (SYNTHROID) 25 MCG Tablet Take 25 mcg by mouth daily. Active sertraline (ZOLOFT) 50 MG Tablet Take 50 mg by mouth daily. Active ascorbic acid (ASCORBIC ACID) 500 MG Tablet Take 1 Tablet by mouth daily. With Iron tablet 30 Tablet 1 2 Active Additional Information Patient not taking.Reported on 03/13/2022 ferrous sulfate 325 (65 Fe) MG Tablet Take 1 Tablet by mouth daily. 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 PCOS (polycystic ovarian syndrome) 03/13/2022 Family History Medical History Relation Name Comments Kidney Disease Maternal Uncle 2 Osteoarthritis Mother Diabetes Sister Relation Name Status Comments Father degenerative di sc disease, pre diabetic Maternal Uncle 1 brain tumor Maternal Uncle 2 Other Mother fibromyalgia Sister Social History Tobacco Use Types Packs/Day Years Used Date Smoking Tobacco: Never Smokeless Tobacco: Never Tobacco Cessation:Counseling Given: Not Answered Alcohol Use Standard Drinks/Week Comments Yes 0 (1 standard drink = 0.6 oz pur e alcohol) socially Comments Unknown Sex and Gender Information Value Date Recorded Sex Assigned at Not on file Legal Sex Female 11:19 AM AGRICULTURAL EQUIPMENT TEST ENGINEER Gender Identity Not on file Sexual Orientation Not on file Last Filed Vital Signs Vital Sign Reading Time Taken Comments Blood Pressure 112/68 03/13/2022 1:13 PM AGRICULTURAL EQUIPMENT TEST ENGINEER Pulse 107 03/13/2022 1:13 PM AGRICULTURAL EQUIPMENT TEST ENGINEER Temperature 36.7 C (98 F) 03/13/2022 1:13 PM AGRICULTURAL EQUIPMENT TEST ENGINEER Respiratory Rate 18 03/13/2022 1:13 PM AGRICULTURAL EQUIPMENT TEST ENGINEER Oxygen Saturation 95% 03/13/2022 1:13 PM AGRICULTURAL EQUIPMENT TEST ENGINEER Inhaled Oxygen Concentration - - Weight 151 kg (333 lb) 03/13/2022 1:13 PM AGRICULTURAL EQUIPMENT TEST ENGINEER Height 167.6 cm (5' 6 ) 03/13/2022 1:13 PM AGRICULTURAL EQUIPMENT TEST ENGINEER Body Mass Index 53.75 03/13/2022 1:13 PM AGRICULTURAL EQUIPMENT TEST ENGINEER Plan of Treatment Health Maintenance Due Date Last Done Comments Hepatitis C Virus (HCV) Screening 1994 TdaP Immunization 1994 Hepatitis B Immunization (1 of 3 - 19+ 3-dose series) 2013 Influenza Immunization (#1) 2023 SARS-COV-2 Immunization (2023- season) 2023 Respiratory Syncytial Virus (RSV) Immunization (Adult) (1 - 1-dose 75+ series) 2069 Meningococcal Immunization (ACWY) Aged Out No longer eligible based on patient's age to complete this topic Pneumococcal Immunization Combined Aged Out No longer eligible based on patient's age to complete this topic Rotavirus Immunization Aged Out No lo nger eligible based on patient's age to complete this topic Insurance [facility] Care Teams Certified Prosthetist/Orthotist Relationship Specialty Start Date End Date Marcelino Lozano [address] [place] [address] PCP - General Family Medicine 02/19/22
--- OUTSIDE RECORDS SUMMARY | 2024-07-08 09:05 | XMS_ITS | Referral Summary ---
Author Organization [facility] Address [address] [place] [address] Care Team Providers Care Pad Extractor Tender Name Role Phone Franny Lewis MD Unavailable [phone] Milvia Soto MD Primary Care Provider Encounters Date Type Department Care Team Description 05/08/2024 7:00 PM DATA QUALITY CONSULTANT Office Visit [facility] Con[facility]ient Care at [address] [address] Almita Maki NP Acute cough (Primary Dx); Acute non-recurrent frontal sinusitis from Last 3 Months Allergies Active Allergy Reactions Criticality Noted Date Comments Benzoyl Peroxide Anaphylaxis,Other (See comments) High 04/11/2018 Hydroxychloroquine Unknown,Hives,Other (See comments) High 04/11/2018 Medications meloxicam (MOBIC) 15 mg tablet Take 1 tablet (15 mg total) by mouth daily Active levothyroxine (SYNTHROID) 25 mcg tablet Take 1 tablet (25 mcg total) by mouth daily Active cholecalciferol (VITAMIN D-3) 50,000 unit capsule Take 1 capsule (50,000 Units total) by mouth once a week 12/11/2022 Active cyclobenzaprine (FLEXERIL) 10 mg tablet Take 1 tablet (10 mg total) by mouth 3 (three) times a day as needed Active clonazePAM (KlonoPIN) 0.5 mg tablet Take 1 tablet (0.5 mg total) by mouth 2 (two) times a day as needed 11/17/2022 Active cloNIDine (CATAPRES) 0.2 mg tablet Take 1 tablet (0.2 mg total) by mouth daily as needed 09/29/2022 Active escitalopram (LEXAPRO) 20 mg tablet Take 1 tablet (20 mg total) by mouth daily 12/09/2022 Active semaglutide (Rybelsus) 3 mg tablet Take 1 tablet (3 mg total) by mouth daily Active benzonatate (TESSALON) 100 mg capsuleIndicati ons:Cough Take 1 capsule (100 mg total) by mouth 3 (three) times a day as needed for cough 42 capsule 05/08/2024 Active albuterol HFA (PROVENTIL HFA,VENTOLIN HFA,PROAIR HFA) 90 mcg/actuation inhalerIndicati ons:Acute cough Inhale 2 puffs every 6 (six) hours as needed for wheezing for up to 7 days 1 each 05/08/2024 Active Active Problems Problem Noted Date Diagnosed Date Pericardial effusion 12/15/2022 Abnormal echocardiogram 12/15/2022 Precordial pain 12/15/2022 H/O systemic lupus erythematosus (SLE) PCOS (polycystic ovarian syndrome) 12/15/2022 Class 3 obesity 12/15/2022 Hypertriglyceridemia 12/15/2022 Social History Tobacco Use Types Packs/Day Years Used Date Smoking Tobacco: Never Smokeless Tobacco: Never Tobacco Cessation:Counseling Given: Not Answered Comments Unknown Sex and Gender Information Value Date Recorded Sex Assigned at Not on file Legal Sex Female 9:15 AM DATA QUALITY CONSULTANT Gender Identity Not on file Sexual Orientation Not on file Last Filed Vital Signs Vital Sign Reading Time Taken Comments Blood Pressure 110/76 05/08/2024 5:24 PM DATA QUALITY CONSULTANT Pulse 83 05/08/2024 5:24 PM DATA QUALITY CONSULTANT Temperature 36.8 C (98.3 F) 05/08/2024 5:24 PM DATA QUALITY CONSULTANT Respiratory Rate 21 05/08/2024 5:24 PM DATA QUALITY CONSULTANT Oxygen Saturation 99% 05/08/2024 5:24 PM DATA QUALITY CONSULTANT Inhaled Oxygen Concentration - - Weight 108.9 kg (240 lb) 05/08/2024 5:24 PM DATA QUALITY CONSULTANT Height 167.6 cm (5' 6 ) 05/08/2024 5:24 PM DATA QUALITY CONSULTANT Body Mass Index 38.74 05/08/2024 5:24 PM DATA QUALITY CONSULTANT Plan of Treatment Not on file Procedures Procedure Name Priority Date/Time Associated Diagnosis Comments POCT RAPID STREP Routine 05/08/2024 5:44 PM DATA QUALITY CONSULTANT Acute cough POC INFLUENZA A/B, COVID-19 ANTIGEN Routine 05/08/2024 5:43 PM DATA QUALITY CONSULTANT Acute cough from Last 3 Months Results * POCT rapid strep A (05/08/2024 5:44 PM DATA QUALITY CONSULTANT) Rapid Strep A, POC Negative Negative Swab 05/08/2024 5:44 PM DATA QUALITY CONSULTANT Almita Maki BIOMETRICS INSTRUCTOR POINT OF CARE TEST ORDERAB LES Final Result * POC Influenza A/B, COVID-19 antigen (05/08/2024 5:43 PM DATA QUALITY CONSULTANT) Influenza A Ag, POC Negative Negative [facility] Influenza B Ag, POC Negative Negative [facility] COVID-19 Ag POC Presumptive Negative Presumptive Negative, Invalid [facility] Nasal 05/08/2024 5:43 PM DATA QUALITY CONSULTANT Almita Maki BIOMETRICS INSTRUCTOR POINT OF CARE TEST ORDERAB LES Final Result [facility] [address] [address], [facility] from Last 3 Months Insurance [facility] CLAIMS BLUE ACCESS [facility] Address: [address] [place] [address] [employer] OPEN ACCESS [facility] EMPL[employer]EE HEALTH PLANS Address: [address] [place] [phone] [employer] O[employer] OPEN ACCESS [employer] OPEN ACCESS Care Teams Pad Extractor Tender Relationship Specialty Start Date End Date Milvia Soto MD [address] [facility] [place] [address] PCP - General Family Practice 12/15/22 Franny Lewis MD Family Medicine 02/28/22
--- OUTSIDE RECORDS SUMMARY | 2024-07-08 09:05 | XMS_ITS | Clinical Summary ---
Author Organization [facility] Address [address] [place] [address] Care Team Providers Care Rn Care Transition Name Role Phone Franny Lewis MD Unavailable [phone] Milvia Soto MD Primary Care Provider Allergies Active Allergy Reactions Criticality Noted Date [...] 12/15/2022 Class 3 obesity 12/15/2022 Hypertriglyceridemia 12/15/2022 Encounters Date Type Department Care Team Description 05/08/2024 7:00 PM SURVEYOR GEODETIC Office Visit [facility] Convenient Care at [address] [place] [address] Almita Maki NP Acute cough (Primary Dx); Acute non-recurrent frontal sinusitis from Last 3 Months Surgical History Surgery Date Site/Laterality Comments TONSILECTOMY, ADENOIDECTOMY, BILATERAL MYRINGOTOMY AND TUBES Medical History Medical History Date Comments Anxiety Jacquelyn's disease Lupus PCOS (polycystic ovarian syndrome) Depression Family History Medical History Relation Name Comments Diabetes Father Fibromyalgia Mother prediabete Mother Relation Name Status Comments Father Alive Mother Alive Social History Tobacco Use Types Packs/Day Years Used Date Smoking Tobacco: Never Smokeless Tobacco: Never Tobacco Cessation:Counseling Given: Not Answered Comments Unknown Sex and Gender Information Value Date Recorded Sex Assigned at Not on file Legal Sex Female 9:15 AM SURVEYOR GEODETIC Gender Identity Not on file Sexual Orientation Not on file Obstetrics History Last Filed Vital Signs Vital Sign Reading Time Taken Comments Blood Pressure 110/76 05/08/2024 5:24 PM SURVEYOR GEODETIC Pulse 83 05/08/2024 5:24 PM SURVEYOR GEODETIC Temperature 36.8 C (98.3 F) 05/08/2024 5:24 PM SURVEYOR GEODETIC Respiratory Rate 21 05/08/2024 5:24 PM SURVEYOR GEODETIC Oxygen Saturation 99% 05/08/2024 5:24 PM SURVEYOR GEODETIC Inhaled Oxygen Concentration - - Weight 108.9 kg (240 lb) 05/08/2024 5:24 PM SURVEYOR GEODETIC Height 167.6 cm (5' 6 ) 05/08/2024 5:24 PM SURVEYOR GEODETIC Body Mass Index 38.74 05/08/2024 5:24 PM SURVEYOR GEODETIC Plan of Treatment Health Maintenance Due Date Last Done Comments Cervical Cancer Screening 1994 Depression Screening 1994 Hepatitis C Screening 1994 DTaP/Tdap/Td Vaccine (1 - Tdap) 2005 Varicella Vaccines (1 of 2 - 13+ 2-dose series) 11/30/2007 Hepatitis B Screening 2012 Regular Well Visit/Exam 18-64 2012 Influenza Vaccine (#1) 2023 HPV Vaccines Aged Out No longer eligi ble based on patient's age to complete this topic Pneumococcal vaccine <65 Aged Out No longer eligible based on patient's age to complete this topic Procedures Procedure Name Priority Date/Time Associated Diagnosis Comments POCT RAPID STREP Routine 05/08/2024 5:44 PM SURVEYOR GEODETIC Acute cough POC INFLUENZA A/B, COVID-19 ANTIGEN Routine 05/08/2024 5:43 PM SURVEYOR GEODETIC Acute cough from Last 3 Months Results * POCT rapid strep A (05/08/2024 5:44 PM SURVEYOR GEODETIC) Pathologist [facility] Rapid Strep A, POC Negative Negative Swab 05/08/2024 5:44 PM SURVEYOR GEODETIC Almita Maki NP POINT OF CARE TEST ORDERAB LES Final Result * POC Influenza A/B, COVID-19 antigen (05/08/2024 5:43 PM SURVEYOR GEODETIC) Pathologist [facility] Influenza A Ag, POC Negative Negative [facility] Influenza B Ag, POC Negative Negative [facility] COVID-19 Ag POC Presumptive Negative Presumptive Negative, Invalid [facility] Nasal 05/08/2024 5:43 PM SURVEYOR GEODETIC Almita Maki NP POINT OF CARE TEST ORDERAB LES Final Result [facility] [address] [facility] [address] [place] [address], [facility] from Last 3 Months Insurance [facility] CLAIMS [employer] ACCESS [facility] EMPLOYEE HEALTH PLANS Address: [address] [place] [address] [employer] OOS [employer]OS [employer] OPEN ACCESS [employer] OPEN ACCESS Care Teams Rn Care Transition Relationship Specialty Start Date End Date Milvia Soto MD [address] [place] [address] [place] [address] PCP - General Family Practice 12/15/22 Franny Lewis MD Family Medicine 02/28/22
--- OUTSIDE RECORDS SUMMARY | 2024-07-08 09:05 | XMS_ITS | Encounter Summary ---
Author Organization [facility] Address [address] [place] [address] Care Team Providers Care Medical Attendant Name Role Phone Karly Mohan Primary Care Provider [phone] Encounter Details Date Type Department Care Team (Late st Contact Info) Description 06/18/2023 Abstract [facility] Operating Room [address] [address] Parminder Ortega MD [address] [place], [place] [id number] Social History Tobacco Use Types Packs/Day Years Used Date Smoking Tobacco: Never Smokeless Tobacco: Never Alcohol Use Standard Drinks/Week Comments Never 0 (1 standard drink = 0.6 oz pur e alcohol) Comments Unknown Sex and Gender Information Value Date Recorded Sex Assigned at Not on file Legal Sex Female 9:06 AM COUNSEL Gender Identity Not on file Sexual Orientation Not on file documented as of this encounter Plan of Treatment Not on file documented as of this encounter Visit Diagnoses Not on filedocumented in this encounter Care Teams Medical Attendant Relationship Specialty Start Date End Date Karly Mohan FNP [address] [place] [address] [address] [place] [address] PCP - General Nurse Practitioner Family 03/20/20 documented as of this encounter
[2024-07-08 18:10] LABS: Basophils Absolute Auto 0.1 K/mm3 (0.0-0.1); Basophils Percent Auto 0.8 % (0.2-1.2); Eosinophils Absolute Auto 0.1 K/mm3 (0-0.3); Eosinophils Percent Auto 1.3 % (0-4.4); Hematocrit 44.5 % (37.0-47.0); Hemoglobin 14.2 g/dL (12.0-15.0); Immature Granulocyte Absolute 0.02 K/mm3 (0.00-0.031); Immature Granulocyte Percent A 0.2 % (0-0.5); Lymphocytes Absolute Auto 3.21 K/mm3 (0.9-3.2); Lymphocytes Percent Auto 36.6 % (18.3-44.2); Mean Corpuscular HGB Conc 31.9 g/dl (32-36); Mean Corpuscular Hemoglobin 26.9 pg (26-34); Mean Corpuscular Volume 84.4 fl (80-100); Monocytes Absolute Auto 0.6 K/mm3 (0.1-0.6); Monocytes Percent Auto 7.2 % (2.6-8.5); Neutrophils Absolute Auto 4.7 K/mm3 (1.3-6.7); Neutrophils Percent Auto 53.9 % (45.5-73.1); Platelet Count Result 270 k/mm3 (150-375); Red Blood Count 5.27 M/mm3 (4.2-5.4); Red Cell Distribution Width 13.8 % (11.5-14.5); White Blood Count 8.8 K/mm3 (4.5-10.0)
[2024-07-08 18:48] LABS: Free T4 Free Thyroxine 1.06 ng/dL (0.78-2.19)
[2024-07-08 19:02] LABS: Alanine Aminotransferase 28 U/L (6-35); Albumin Level 4.3 g/dL (3.5-5.1); Alkaline Phosphatase 73 U/L (38-126); Anion Gap 9 mmol/L (4-12); Aspartate Amino Transferase 37 U/L (14-36); Bilirubin,Total 0.4 mg/dL (0.2-1.3); Blood Urea Nitrogen 17 mg/dL (7-17); Calcium 9.6 mg/dL (8.4-10.2); Carbon Dioxide 29 mmol/L (22-30); Chloride 102 mmol/L (98-107); Cholesterol 181 mg/dL (0-200); Estimated Glomerular Filt Rate > 60; Glucose 85 mg/dL (65-110); HDL Direct 43 mg/dL; Potassium 4.6 mmol/L (3.4-5.0); Sodium 140 mmol/L (137-145); Triglycerides 130 mg/dL (<150)
[2024-07-08 19:13] LABS: LDL Cholesterol Direct 105 mg/dL
== END 2024-07-08 08:52 | disposition home or self-care (01) ==
LOC: ANHGOSHLAB 08:51
PROVIDERS: PCP Family Medicine; Visit Provider Nurse Practitioner Family
DX: Z13.220 Encounter for screening for lipoid disorders (principal); E06.3 Autoimmune thyroiditis; E03.9 Hypothyroidism, unspecified; E55.9 Vitamin D deficiency, unspecified; Z98.84 Bariatric surgery status
CPT/HCPCS: 36415; 80053; 80061; 82306; 82607; 84439; 84443; 85025

== ENCOUNTER 2024-12-01 13:16 | Outpatient (CLI) | payer OTHER, SELFPAY ==
--- OUTSIDE RECORDS SUMMARY | 2024-12-01 13:20 | XMS_ITS | Encounter Summary ---
Author Organization [facility] Address [address] [place] [address] Care Team Providers Care Solar Maintenance Technician Name Role Phone Karly Mohan Primary Care Provider [phone] Encounter Details Date Type Department Care Team (Late st Contact Info) Description 06/18/2023 Abstract [facility] Operating Room [address] [address] Parminder Ortega MD [address] [place], [place] [id number] Social History Tobacco Use Types Packs/Day Years Used Date Smoking Tobacco: Never Smokeless Tobacco: Never Alcohol Use Standard Drinks/Week Comments Never 0 (1 standard drink = 0.6 oz pur e alcohol) Comments Unknown Sex and Gender Information Value Date Recorded Sex Assigned at Not on file Legal Sex Female 9:06 AM LOAN ADMINISTRATOR Gender Identity Not on file Sexual Orientation Not on file documented as of this encounter Plan of Treatment Not on file documented as of this encounter Visit Diagnoses Not on filedocumented in this encounter Care Teams Solar Maintenance Technician Relationship Specialty Start Date End Date Karly Mohan FNP [address] [place] [address] [address] [place] [address] PCP - General Nurse Practitioner Family 03/20/20 documented as of this encounter
--- OUTSIDE RECORDS SUMMARY | 2024-12-01 13:20 | XMS_ITS | Clinical Summary ---
Author Organization [facility] Address [address], [facility] [address] [place] [address] Phone Care Team Providers Care Dermatology Specialist Name Role Phone Marcelino Lozano Primary Care Provider [phone] Allergies Active Allergy Reactions Criticality Noted Date [...] on file Legal Sex Female 11:19 AM RUBBER ROLLER GRINDER Gender Identity Not on file Sexual Orientation Not on file Last Filed Vital Signs Vital Sign Reading Time Taken Comments Blood Pressure 112/68 03/13/2022 1:13 PM RUBBER ROLLER GRINDER Pulse 107 03/13/2022 1:13 PM RUBBER ROLLER GRINDER Temperature 36.7 C (98 F) 03/13/2022 1:13 PM RUBBER ROLLER GRINDER Respiratory Rate 18 03/13/2022 1:13 PM RUBBER ROLLER GRINDER Oxygen Saturation 95% 03/13/2022 1:13 PM RUBBER ROLLER GRINDER Inhaled Oxygen Concentration - - Weight 151 kg (333 lb) 03/13/2022 1:13 PM RUBBER ROLLER GRINDER Height 167.6 cm (5' 6) 03/13/2022 1:13 PM RUBBER ROLLER GRINDER Body Mass Index 53.75 03/13/2022 1:13 PM RUBBER ROLLER GRINDER Plan of Treatment Health Maintenance Due Date Last Done Comments Hepatitis C Virus (HCV) Screening 1994 TdaP Immunization 1994 Hepatitis B Immunization (1 of 3 - 19+ 3-dose series) 2013 Pap Smear 11/30/2015 Human Papillomavirus (HPV) Immunization (1 - 3-dose SCDM series) 2021 Influenza Immunization (#1) 2024 SARS-COV-2 Immunization ( season) 2024 Cervical Cancer Screening (CCS) 2024 HPV/Cotest 2024 Respiratory Syncytial Virus (RSV) Immunization (Adult) (1 - 1-dose 75+ series) 2069 Meningococcal Immunization (ACWY) Aged Out No longer eligible based on patient's age to complete this topic Pneumococcal Immunization Combined Aged Out No longer eligible based on patient's age to complete this topic Rotavirus Immunization Aged Out No lo nger eligible based on patient's age to complete this topic Insurance [facility] Care Teams Dermatology Specialist Relationship Specialty Start Date End Date Marcelino Lozano [address] [place] [address] PCP - General Family Medicine 02/19/22
--- OUTSIDE RECORDS SUMMARY | 2024-12-01 13:20 | XMS_ITS | Patient Health Record ---
Author Organization [facility] Address [address] [facility] [address] [place] [address] Care Team Providers Care Detail Drafter Name Role Phone Purnima Crow Unavailable [phone] Marcelino Lozano MD Unavailable Unavailable Reason For Referral No Information Medications Medication SIG (Take, Route, Fr equency, Duration) Notes Start Date End Date Status Zoloft 50 MG take 1 tablet (50 mg ) by oral route once daily Oral 1 Active Synthroid 25 MCG take 1 tablet (25 mc g) by oral route once daily Oral 1 Active Meloxicam 15 MG take 1 tablet (15 mg ) by oral route once daily Oral 1 Active Plan Of Treatment No Information Insurance Providers Payer Name Payer Address Payer Phone Subscriber Number Group Number Insured Name Patient Relationship to Insured Coverage Start Date Coverage End Date Affaredelgiorno [address] Claims Department [place], [place] [address] [phone] [id number] Aure Winn Self - patient is the insured Medical (General) History Surgical History Surgery Date(Month/Year) Tonsillectomy; 2022-02-28
--- OUTSIDE RECORDS SUMMARY | 2024-12-01 13:20 | XMS_ITS | Clinical Summary ---
Author Organization [facility] Address [address] [place] [address] Care Team Providers Care Senior Clinical Data Manager Name Role Phone Franny Lewis MD Unavailable [phone] Milvia Soto MD Primary Care Provider Allergies [...] 12/15/2022 Class 3 obesity 12/15/2022 Hypertriglyceridemia 12/15/2022 Comments Yes Encounters Date Type Department Care Team Description 09/21/2024 10:40 PM CDT - 09/22/2024 1:49 AM CDT Emergency [facility] Emergency Department [address] [place] [address] Sebastián Wagner MD Medication side effect (Primary Dx) Discharge Disposition: Discharge to home or self care from Last 3 Months Surgical History Surgery [...] Not Answered Alcohol Use Standard Drinks/Week Comments Never 0 (1 standard drink = 0.6 oz pur e alcohol) Personal Safety Answer Date Recorded Have you ever been in or are you currently in a harmful physical or emotional relationship or is someone making you feel afraid or unsafe? Denies 09/21/2024 Comments Yes Sex and Gender Information Value Date Recorded Sex Assigned at Not on file Legal Sex Female 9:15 AM BUSINESS SYSTEMS ADMINISTRATOR Gender Identity Not on file Sexual Orientation Not on file Obstetrics History Para Term AB IAB SAB Ectopic Multiple Livin g Live Births 1 Date Outcome GA Total Labor Labor/2nd/3rd Weight Sex Type Anes PTL Lena A1 A5 Name Clin Current Last Filed Vital Signs Vital Sign Reading Time Taken Comments Blood Pressure 141/83 09/22/2024 1:00 AM CDT Pulse 62 09/22/2024 1:45 AM CDT Temperature 36.7 C (98.1 F) 09/21/2024 10:50 PM CDT Respiratory Rate 18 09/21/2024 10:50 PM CDT Oxygen Saturation 98% 09/22/2024 1:45 AM CDT Inhaled Oxygen Concentration - - Weight 108 kg (238 lb 1.6 oz) 09/21/2024 10:50 P M CDT Height 165.1 cm (5' 5) 09/21/2024 8:38 PM CDT Body Mass Index 39.62 09/21/2024 8:38 PM CDT Plan of Treatment Health Maintenance Due Date Last Done Comments Cervical Cancer Screening 1994 Depression Screening 1994 Hepatitis C Screening 1994 DTaP/Tdap/Td Vaccine (1 - Tdap) 2005 Varicella Vaccines (1 of 2 - 13+ 2-dose series) 11/30/2007 Hepatitis B Screening 2012 Regular Well Visit/Exam 18-64 2012 HPV Vaccines (1 - 3-dose SCD M series) 2021 Influenza Vaccine (#1) 2024 Pneumococcal vaccine <65 Aged Out No longer eligible based on patient's age to complete this topic Insurance [facility] EMPLOYEE HEALTH PLANS Address: [address] [place] [address] [facility] [address] [facility] OOS [employer] OPEN ACCESS Care Teams Senior Clinical Data Manager Relationship Specialty Start Date End Date Milvia Soto MD [facility] [address] [address] PCP - General Family Practice 12/15/22 Franny Lewis MD Family Medicine 02/28/22
--- OUTSIDE RECORDS SUMMARY | 2024-12-01 13:21 | XMS_ITS | Clinical Summary ---
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 Gender Identity Not on file Sexual Orientation [...] 12:35 PM CDT Height 167.6 cm (5' 6) 07/06/2023 12:3 5 PM CDT Body Mass Index 55.23 07/06/2023 12:35 PM CDT Plan of Treatment Health Maintenance Due Date Last Done Comments DTAP/TDAP/TD VACCINES (1 - Tdap) 2013 HEPATITIS B VACCINES (1 of 3 - 19+ 3-dose series) 04/2013 CERVICAL CANCER SCREENING 11/30/2015 HPV/Cotest (21-29) 11/30/2015 PAP SMEAR 11/30/2015 HPV VACCINES (1 - 3-dose SCDM series) 2021 INFLUENZA VACCINE (#1) 2024 HPV/Cotest (30-65) 2024 Medical Devices Implanted Type Area Information Security Device Identifier Shelf Expiration Date Model / Serial / Lot Seamguard Endogia 60 Blk [id number] - [id number] Implanted:Qt y: 1 on 07/06/2023 by Parminder Ortega MD at [facility] Biological N/A: Stomach [employer] [id number] 12/09/2025 12BSGTRI 60B / / [id number] Seamguard Endogia 60 Blk [id number] - [id number] Implanted:Qt y: 1 on 07/06/2023 by Parminder Ortega MD at [facility] Biological N/A: Stomach [employer] [id number] 12/09/2025 12BSGTRI 60B / / [id number] Seamguard Endogia 60 Prpl [id number] - [id number] Implanted:Qt y: 1 on 07/06/2023 by Parminder Ortega MD at [facility] Biological N/A: Stomach [employer] [id number] 12/27/2025 12BSGTRI 60P / / [id number] Seamguard Endogia 60 Prpl [id number] - [id number] Implanted:Qt y: 1 on 07/06/2023 by Parminder Ortega MD at [facility] Biological N/A: Stomach [employer] [id number] 12/27/2025 12BSGTRI 60P / / [id number] Insurance [facility] Member Subscriber Plan / Payer (Ef fective 2023-Present) Name:Jimmy Cm Relation to Subscriber:Self Name:Jimmy Cm Payer ID:Not on file Group ID:Not on file Type:[place] [address] ACCESS/TRUE BLUE PPO RX [employer] Express RX DIGGS PLANS (INTERNAL) [facility] Internal Plans Advance Directives For more information, please contact: [phone] * Full Code (Latest Code Status on File) Date Activated Date Inactivated Comments 07/06/2023 8:23 AM 07/08/2023 1:09 PM * Full Code Date Activated Date Inactivated Comments 07/06/2023 7:16 AM 07/06/2023 8:23 AM Care Teams Client Care Consultant Relationship Specialty Start Date End Date Karly Mohan FNP [address] [address] PCP - General Nurse Practitioner Family 03/20/20
[2024-12-01 19:06] LABS: Alanine Aminotransferase 16 U/L (6-35); Albumin Level 3.7 g/dL (3.5-5.1); Alkaline Phosphatase 63 U/L (38-126); Anion Gap 6 mmol/L (4-12); Aspartate Amino Transferase 29 U/L (14-36); Bilirubin,Total 0.4 mg/dL (0.2-1.3); Blood Urea Nitrogen 8 mg/dL (7-17); Calcium 9.2 mg/dL (8.4-10.2); Carbon Dioxide 22 mmol/L (22-30); Chloride 106 mmol/L (98-107); Estimated Glomerular Filt Rate > 60; Glucose 122 mg/dL (65-110); Potassium 3.6 mmol/L (3.4-5.0); Sodium 134 mmol/L (137-145); Total Protein 7.0 g/dL (6.3-8.2)
[2024-12-01 19:37] LABS: Total Protein Urine Random 6 mg/dL; Ur Ttl Prot Creatinine Ratio 0.02 mg/mg (0-0.20)
[2024-12-02 14:08] LABS: ANA by IFA Rfx Titer/Pattern Positive (.)
== END 2024-12-01 13:17 | disposition home or self-care (01) ==
LOC: ANHGOSHLAB 13:17
PROVIDERS: PCP Family Medicine; Visit Provider Obstetrics & Gynecology
DX: O99.119 Other diseases of the blood and blood-forming organs and certain disorders involving the immune mechanism complicating pregnancy, unspecified trimester (principal); D68.62 Lupus anticoagulant syndrome; Z3A.00 Weeks of gestation of pregnancy not specified
CPT/HCPCS: 36415; 80053; 82570; 84156; 86038; 86160; 86162; 86225; 86235

== ENCOUNTER 2024-12-15 17:16 | Observation (INO) | payer OTHER, SELFPAY ==
[2024-12-15] VITALS (47 sets, daily range): BP systolic 118; BP diastolic 67; PULSE 67–156; RESP 19; TEMP 36.6–36.7; O2SAT 96–100
--- OUTSIDE RECORDS SUMMARY | 2024-12-15 17:22 | XMS_ITS | Clinical Summary ---
Author Organization [facility] Address [address], [facility] [address] [place] [address] Phone Care Team Providers Care Travel Information Center Supervisor Name Role Phone Marcelino Lozano Primary Care Provider [phone] Allergies Active Allergy Reactions Criticality Noted Date [...] on file Legal Sex Female 11:19 AM REGIONAL EHS MANAGER Gender Identity Not on file Sexual Orientation Not on file Last Filed Vital Signs Vital Sign Reading Time Taken Comments Blood Pressure 112/68 03/13/2022 1:13 PM REGIONAL EHS MANAGER Pulse 107 03/13/2022 1:13 PM REGIONAL EHS MANAGER Temperature 36.7 C (98 F) 03/13/2022 1:13 PM REGIONAL EHS MANAGER Respiratory Rate 18 03/13/2022 1:13 PM REGIONAL EHS MANAGER Oxygen Saturation 95% 03/13/2022 1:13 PM REGIONAL EHS MANAGER Inhaled Oxygen Concentration - - Weight 151 kg (333 lb) 03/13/2022 1:13 PM REGIONAL EHS MANAGER Height 167.6 cm (5' 6) 03/13/2022 1:13 PM REGIONAL EHS MANAGER Body Mass Index 53.75 03/13/2022 1:13 PM REGIONAL EHS MANAGER Plan of Treatment Health Maintenance Due Date [...] patient's age to complete this topic Insurance [facility] Care Teams Travel Information Center Supervisor Relationship Specialty Start Date End Date Marcelino Lozano [address] [place] [address] PCP - General Family Medicine 02/19/22
--- OUTSIDE RECORDS SUMMARY | 2024-12-15 17:22 | XMS_ITS | Encounter Summary ---
Author Organization [facility] Address [address] [place] [address] Care Team Providers Care Dance Professor Name Role Phone Karly Mohan Primary Care Provider [phone] Encounter Details Date Type Department Care Team (Late st Contact Info) Description 06/18/2023 Abstract [facility] Operating Room [address] [address] Parminder Ortega MD [address] [place], [place] [id number] Social History Tobacco Use Types Packs/Day Years Used Date Smoking Tobacco: Never Smokeless Tobacco: Never Alcohol Use Standard Drinks/Week Comments Never 0 (1 standard drink = 0.6 oz pur e alcohol) Comments Unknown Sex and Gender Information Value Date Recorded Sex Assigned at Not on file Legal Sex Female 9:06 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
--- OUTSIDE RECORDS SUMMARY | 2024-12-15 17:22 | XMS_ITS | Clinical Summary ---
Author Organization [employer] [address] [place] [address] [address] [address] [place] [address] Care Team Providers Care Assistant Sales Director Name Role Phone Karly Mohan NICHO Primary Care Provider [phone] Allergies Active Allergy Reactions Criticality Noted Date [...] on file Legal Sex Female 9:06 AM BUSINESS MANAGER Gender Identity Not on file Sexual [...] of 3 - 19+ 3-dose series) 04/2013 HPV/Cotest (21-29) 11/30/2015 HPV VACCINES (1 - 3-dose SCDM series) 2021 INFLUENZA VACCINE (#1) 2024 CERVICAL CANCER SCREENING 2024 HPV/Cotest (30-65) 2024 PAP SMEAR 2024 Medical Devices Implanted Type Area Durability Engineer Device Identifier Shelf Expiration Date Model / Serial / Lot Seamguard Endogia 60 Blk [id number] - [id number] Implanted:Qt y: 1 on 07/06/2023 by Parminder Ortega MD at [facility] Biological N/A: [employer] [id number] 12/09/2025 12BSGTRI 60B / / [id number] Seamguard Endogia 60 Blk [id number] - [id number] Implanted:Qt y: 1 on 07/06/2023 by Parminder Ortega MD at [facility] Biological N/A: [employer] [id number] 12/09/2025 12BSGTRI 60B / / [id number] Seamguard Endogia 60 Prpl [id number] - [id number] Implanted:Qt y: 1 on 07/06/2023 by Parminder Ortega MD at [facility] Biological N/A: [employer] [id number] 12/27/2025 12BSGTRI 60P / / [id number] Seamguard Endogia 60 Prpl [id number] - [id number] Implanted:Qt y: 1 on 07/06/2023 by Parminder Ortega MD at [facility] Biological N/A: [employer] [id number] 12/27/2025 12BSGTRI 60P / / [id number] Insurance [facility] BCBS BLUE ACCESS/TRUE BLUE PPO RX [employer] RX DIGGS PLANS (INTERNAL) [facility] Internal Plans Advance Directives For more information, please contact: [phone] * Full Code (Latest Code Status on File) Date Activated Date Inactivated Comments 07/06/2023 8:23 AM 07/08/2023 1:09 PM * Full Code Date Activated Date Inactivated Comments 07/06/2023 7:16 AM 07/06/2023 8:23 AM Care Teams Assistant Sales Director Relationship Specialty Start Date End Date Karly Mohan FNP [address] [address] PCP - General Nurse Practitioner Family 03/20/20
--- OUTSIDE RECORDS SUMMARY | 2024-12-15 17:22 | XMS_ITS | Clinical Summary ---
Author Organization [facility] Address [address] [place] [address] Care Team Providers Care Fire Ranger Name Role Phone Franny Lewis MD Unavailable [phone] Milvia Soto MD Primary Care Provider Allergies [...] CDT - 09/22/2024 1:49 AM CDT Emergency [facility] Emergency Department [address] [place] [address] Sebastián Wagner MD Medication side effect (Primary [...] on file Legal Sex Female 9:15 AM RELOCATION SPECIALIST Gender Identity Not on file Sexual Orientation [...] patient's age to complete this topic Insurance [facility] EM[employer]ANS Address: [address] [place] [address] [place] [address] [facility] [employer] OPEN ACCESS Care Teams Fire Ranger Relationship Specialty Start Date End Date Milvia Soto MD [facility] [address] [address] PCP - General Family Practice 12/15/22 Franny Lewis MD Family Medicine 02/28/22
[2024-12-15] MEDS: DEXTROSE 5%/LACTATED RINGERS 1,000 ML 999 ML IV CONT (18:34)
[2024-12-15] MEDS: METOCLOPRAMIDE HCL INJ 10 MG/2 ML VIAL IV PUSH (18:35)
[2024-12-15 18:46] LABS: Hematocrit 37.5 % (37.0-47.0); Hemoglobin 12.4 g/dL (12.0-15.0); Immature Granulocyte Percent A 0.6 % (0-0.5); Lymphocytes Absolute Auto 2.97 K/mm3 (0.9-3.2); Mean Corpuscular HGB Conc 33.1 g/dl (32-36); Mean Corpuscular Hemoglobin 28.0 pg (26-34); Mean Corpuscular Volume 84.7 fl (80-100); Nucleated Red Blood Cells Absolute Auto 0.000 K/mm3 (0.0-0.012); Nucleated Red Blood Cells Perc 0.0 % (0.0-0.2); Platelet Count Result 240 k/mm3 (150-375); Red Blood Count 4.43 M/mm3 (4.2-5.4); White Blood Count 12.2 K/mm3 (4.5-10.0)
[2024-12-15 18:58] LABS: Alanine Aminotransferase 14 U/L (6-35); Albumin Level 3.8 g/dL (3.5-5.1); Alkaline Phosphatase 64 U/L (38-126); Anion Gap 6 mmol/L (4-12); Aspartate Amino Transferase 19 U/L (14-36); Bilirubin,Total 0.3 mg/dL (0.2-1.3); Blood Urea Nitrogen 7 mg/dL (7-17); Calcium 8.8 mg/dL (8.4-10.2); Carbon Dioxide 24 mmol/L (22-30); Chloride 106 mmol/L (98-107); Estimated Glomerular Filt Rate > 60; Glucose 79 mg/dL (65-110); Potassium 3.8 mmol/L (3.4-5.0); Sodium 136 mmol/L (137-145); Total Protein 7.3 g/dL (6.3-8.2)
[2024-12-15] MEDS: PROMETHAZINE HCL 25 MG/ML AMPUL 12.5 MG IV PUSH (20:27)
--- NOTE | 2025-01-03 03:16 | PM.OBTRLD ---
OB - Triage/Final Diagnosis Visit Information Comments/Additional reasons for admission: I have assessed the risk for this patient, Aure Winn, and determined that she would benefit from observation care. Evaluation Laboratory results: Laboratory Tests 12/15/24 18:42 WBC 12.2 H RBC 4.43 Hgb 12.4 Hct 37.5 MCV 84.7 MCH 28.0 MCHC 33.1 RDW 13.0 Plt Count 240 MPV 10.3 Immature Gran % (Auto) 0.6 H Neut % (Auto) 69.4 Lymph % (Auto) 24.3 Atkinson % (Auto) 5.1 Eos % (Auto) 0.4 Baso % (Auto) 0.2 Lymph # (Auto) 2.97 Atkinson # (Auto) 0.6 Eos # (Auto) 0.1 Baso # (Auto) 0.0 Abs Immat Gran (auto) 0.07 H Absolute Neuts (auto) 8.5 H Absolute Nucleated RBC 0.000 Nucleated RBC % 0.0 Sodium 136 L Potassium 3.8 Chloride 106 Carbon Dioxide 24 Anion Gap 6 BUN 7 Creatinine 0.63 L Estim Creat Clear Calc Not Reportable Estimated GFR > 60 Glucose 79 Calcium 8.8 Total Bilirubin 0.3 AST 19 ALT 14 Alkaline Phosphatase 64 Total Protein 7.3 Albumin 3.8 Final Diagnosis (1) Nausea and vomiting: Code(s): R11.2 - Nausea with vomiting, unspecified Status: Acute
== END 2024-12-15 21:50 | disposition home or self-care (01) ==
PROVIDERS: Admitting Provider Obstetrics & Gynecology; PCP Family Medicine; Visit Provider Obstetrics & Gynecology
DX: O21.9 Vomiting of pregnancy, unspecified (principal); Z3A.00 Weeks of gestation of pregnancy not specified
CPT/HCPCS: 36415; 80053; 85025; 96374; 96375; G0378; G0379; J2550; J2765; J7121